=== PATIENT | male | born 1955 | race Caucasian/White ===

== ENCOUNTER 2019-11-10 11:19 | Observation (INO) | payer MEDICARE, OTHER ==
[2019-11-10] MEDS ORDERED: levETIRAcetam IV 1,000 MG in SALINE 1 100ML.BAG IVPB STA (11:27)
[2019-11-10 11:45] VITALS: RESP 18
[2019-11-10] MEDS: SODIUM CHLORIDE 0.9% 1,000 ML IV STA ×2 (11:48→15:05)
[2019-11-10 11:51] LABS: Basophils % (A) 0 %; Eosinophils # (A) 0.1 k/uL (0-0.7); Eosinophils % (A) 2 %; HCT 47.5 % (39.0-53.0); HGB 15.7 gm/dL (13.0-17.5); Lymphocytes # (A) 1.8 k/uL (1.0-4.8); Lymphocytes % (A) 25 %; MCHC 32.9 g/dL (31.0-37.0); MCV 97.1 fL (80.0-100.0); Mean Platelet Volume 8.6; Monocytes # (A) 0.3 k/uL (0-1.0); Monocytes % (A) 5 %; Neutrophils # (A) 4.7 k/uL (1.3-7.7); Neutrophils % (A) 66 %; Platelet Count 232 k/uL (150-450); RBC 4.89 m/uL (4.30-5.90); RDW 12.7 % (11.5-15.5); WBC 7.2 k/uL (3.8-10.6)
--- NOTE | 2019-11-10 11:57 | ED ---
General Adult HPI - General Chief complaint: Neuro Symptoms/Deficit Stated complaint: Unresponsive Time Seen by Provider: 11/10/19 11:20 Source: patient, EMS, RN notes reviewed Mode of arrival: EMS Limitations: altered mental status - History of Present Illness Initial comments: Patient is a pleasant 64-year-old male presenting to the emergency department following an unresponsive episode. EMS reports that family saw patient with clenching of the jaw and abnormal breathing pattern and tonic muscle activity. Patient was with decreased responsiveness. Sudden onset. No injury. Patient was unresponsive for around 6 minutes. Family did do bystander CPR. They did not check a pulse prior to this. When EMS arrived patient did have a pulse and was breathing on his own. Patient was unresponsive and then became combative and then became confused. Patient has slowly improved since that time. Patient arrives and is alert and acting appropriately. Patient does not recall the episode. Patient states he has a history of seizure once many years ago. Patient does not take seizure medication. Patient denies head injury or any recent illness. Patient has no physical complaints at this time however states he does feel slightly confused. Patient agrees that he did bite his tongue during examination. Patient also was incontinent of urine and stool. Patient denies any alcohol or drug use. Chest pain or dyspnea. - Related Data Home Medications Medication Instructions Recorded Confirmed Ibuprofen [Motrin Ib] 400 mg PO Q6HR PRN 11/10/19 11/10/19 Allergies Allergy/AdvReac Type Severity Reaction Status Date / Time Penicillins Allergy Unknown Verified 11/10/19 12:22 shellfish derived [Shellfish] Allergy Unknown Verified 11/10/19 12:22 Review of Systems ROS Statement: Those systems with pertinent positive or pertinent negative responses have been documented in the HPI. ROS Other: All systems not noted in ROS Statement are negative. Constitutional: Denies: fever Eyes: Denies: eye pain ENT: Denies: ear pain Respiratory: Denies: cough, dyspnea Cardiovascular: Denies: chest pain Endocrine: Denies: fatigue Gastrointestinal: Denies: abdominal pain Genitourinary: Denies: dysuria Musculoskeletal: Denies: back pain Skin: Denies: rash Neurological: Reports: as per HPI, confusion. Denies: headache, weakness Past Medical History Past Medical History: No Reported History History of Any Multi-Drug Resistant Organisms: None Reported Past Surgical History: No Surgical Hx Reported Past Psychological History: No Psychological Hx Reported Smoking Status: Never smoker Past Alcohol Use History: None Reported Past Drug Use History: None Reported General Exam Limitations: altered mental status General appearance: alert, in no apparent distress Head exam: Present: atraumatic, normocephalic Eye exam: Present: normal appearance, PERRL, EOMI ENT exam: Present: other (Tongue and upper lip abrasion) Neck exam: Present: normal inspection. Absent: tenderness Respiratory exam: Present: normal lung sounds bilaterally Cardiovascular Exam: Present: regular rate, normal rhythm GI/Abdominal exam: Present: soft. Absent: tenderness Extremities exam: Present: normal inspection, full ROM. Absent: tenderness Neurological exam: Present: alert, CN II-XII intact. Absent: motor sensory deficit Expanded Neurological exam: Present: protecting the airway Patient oriented to: Present: person, place. Absent: time Speech: Present: fluid speech Cranial nerves: EOM's Intact: Normal Motor strength exam: RUE: 5, LUE: 5, RLE: 5, LLE: 5 Eye Response: (4) open spontaneously Motor Response: (6) obeys commands Verbal Response: (4) confused conversation Psychiatric exam: Present: normal affect, normal mood Skin exam: Present: normal color Course Vital Signs 11/10/19 11/10/19 11:37 12:46 Temperature 98.2 F Pulse Rate 77 74 Respiratory 18 18 Rate Blood Pressure 139/81 123/85 O2 Sat by Pulse 99 95 Oximetry EKG Findings - EKG Comments: EKG Findings:: Normal sinus rhythm 78. [place] 134. QRS 92. QT 406. QTc 462. Normal QRS. No acute ST change. Medical Decision Making - Medical Decision Making Patient reevaluated. Patient resting comfortably in bed. Patient updated on results and plan. Case was Detail with Britton Durand Who Will Admit Covered for Hospital Call. - Lab Data Result diagrams: 11/10/19 11:36 11/10/19 11:36 Lab Results 11/10/19 11/10/19 Range/Units 11:36 11:36 WBC 7.2 (3.8-10.6) k/uL RBC 4.89 (4.30-5.90) m/uL Hgb 15.7 (13.0-17.5) gm/dL Hct 47.5 (39.0-53.0) % MCV 97.1 (80.0-100.0) fL MCH 32.0 (25.0-35.0) pg MCHC 32.9 (31.0-37.0) g/dL RDW 12.7 (11.5-15.5) % Plt Count 232 (150-450) k/uL Neutrophils % 66 % Lymphocytes % 25 % Monocytes % 5 % Eosinophils % 2 % Basophils % 0 % Neutrophils # 4.7 (1.3-7.7) k/uL Lymphocytes # 1.8 (1.0-4.8) k/uL Monocytes # 0.3 (0-1.0) k/uL Eosinophils # 0.1 (0-0.7) k/uL Basophils # 0.0 (0-0.2) k/uL Sodium 136 L (137-145) mmol/L Potassium 4.4 (3.5-5.1) mmol/L Chloride 107 (98-107) mmol/L Carbon Dioxide 22 (22-30) mmol/L Anion Gap 7 mmol/L BUN 13 (9-20) mg/dL Creatinine 0.54 L (0.66-1.25) mg/dL Est GFR (CKD-EPI)AfAm >90 (>60 ml/min/1.73 sqM) Est GFR (CKD-EPI)NonAf >90 (>60 ml/min/1.73 sqM) Glucose 150 H (74-99) mg/dL Calcium 8.6 (8.4-10.2) mg/dL Total Bilirubin 0.7 (0.2-1.3) mg/dL AST 43 (17-59) U/L ALT 25 (4-49) U/L Alkaline Phosphatase 104 (38-126) U/L Total Protein 6.7 (6.3-8.2) g/dL Albumin 3.9 (3.5-5.0) g/dL Serum Alcohol <10 mg/dL - Radiology Data Radiology results: image reviewed (Computed tomography scan of the brain shows no acute hemorrhage or shift. Mild atrophy.) Disposition Clinical Impression: New onset seizure Disposition: ADMITTED IP TO THIS HOSP Is patient prescribed a controlled substance at d/c from ED?: No Referrals: None,Stated [Primary Care Provider] - 1-2 days Decision Time: 12:53
--- NOTE | 2019-11-10 12:17 | CT ---
EXAMINATION TYPE: CT brain wo con DATE OF EXAM: 11/10/2019 HISTORY: Seizure activity CT DLP: 1098.4 mGycm. Automated Exposure Control for Dose Reduction was Utilized. TECHNIQUE: CT scan of the head is performed without contrast. COMPARISON: None. FINDINGS: There is no acute intracranial hemorrhage or midline shift identified. There is diffuse v entricular and sulcal prominence consistent with diffuse age-related cerebral atrophy. Adame-white mat ter differentiation fairly well-maintained. Slightly low-lying cerebellar tonsils but not greater th an 5 mm inferior descent. The calvarium is intact. The globes are intact and the visualized sinuses a re clear. IMPRESSION: No acute intracranial hemorrhage or midline shift. There is mild diffuse age-related ce rebral atrophy noted.
[2019-11-10 12:32] LABS: ALT 25 U/L (4-49); AST 43 U/L (17-59); African American GFR (CKD) >90 (>60 ml/min/1.73 sqM); Albumin 3.9 g/dL (3.5-5.0); Alcohol <10 mg/dL; Alkaline Phosphatase 104 U/L (38-126); Anion Gap 7 mmol/L; Blood Urea Nitrogen 13 mg/dL (9-20); Calcium 8.6 mg/dL (8.4-10.2); Carbon Dioxide 22 mmol/L (22-30); Chloride 107 mmol/L (98-107); Glucose 150 mg/dL (74-99); Non-African American GFR(CKD) >90 (>60 ml/min/1.73 sqM); Sodium 136 mmol/L (137-145); Total Bilirubin 0.7 mg/dL (0.2-1.3); Total Protein 6.7 g/dL (6.3-8.2)
[2019-11-10] MEDS ORDERED: ONDANSETRON 4 MG/2 ML VIAL IVP STA (12:39)
[2019-11-10 12:53] LABS: Potassium 4.4 mmol/L (3.5-5.1)
[2019-11-10] MEDS ORDERED: LORazepam 2 MG/ML INJ IV PRN (13:01)
[2019-11-10] MEDS ORDERED: NALOXONE 0.4 MG/ML 1 ML VIAL IV PRN (13:01)
[2019-11-10 13:29] LABS: Appearance,Urine Clear (Clear); Bilirubin,Urine Negative (Negative); Blood,Urine Negative (Negative); Color,Urine Yellow; Glucose,Urine (UA) Negative (Negative); Ketones,Urine 1+ (Negative); Leukocyte Esterase,Urine Negative (Negative); Nitrite,Urine Negative (Negative); Protein,Urine Trace (Negative); Specific Gravity,Urine 1.013 (1.001-1.035); Urobilinogen,Urine <2.0 mg/dL (<2.0)
[2019-11-10 13:49] LABS: Amphetamine Screen,Urine Not Detected (NotDetected); Barbiturate Screen,Urine Not Detected (NotDetected); Benzodiazepines Screen,Urine Not Detected (NotDetected); Cocaine Screen,Urine Not Detected (NotDetected); Methadone Screen, Urine Not Detected (NotDetected); Opiate Screen,Urine Not Detected (NotDetected); Oxycodone Screen, Urine Not Detected (NotDetected); Phencyclidine Screen,Urine Not Detected (NotDetected); Tricyclic Antidepressant,Urine Not Detected (NotDetected); Urn Cannabinoid Scrn Not Detected (NotDetected)
--- NOTE | 2019-11-10 17:45 | HP ---
HISTORY AND PHYSICAL A 64-year-old white male who came to the emergency room, unresponsive episode from clenching his jaw, abnormal breathing, tonic clonic activity, who already passed out, as well as urinary incontinence and foaming at the mouth, decreased responsiveness, postop confusion. He is unresponsive for about 6 minutes, did some kind of CPR. Currently sitting up in bed. His family member says he is kind of confused still, but as he is eating and drinking now, he is becoming more with it. He denies any history of any seizures. He does not take any medications. No history of trauma. When he did collapse before he started seizing, they apparently had caught him and lowered him to the ground. Does not do alcohol or drugs. He does not take any medicines except over- the-counter medications. ALLERGIES: PENICILLIN, SHELLFISH. 14-POINT REVIEW OF SYSTEMS: Otherwise negative. No medical history. No surgeries. No heart attacks, strokes. PHYSICAL EXAM: Apparently, temp 98.2, blood pressure 120s to 130s/80s, pulse 74, 77, respiratory 18- 20, O2 is 95 to 99. CARDIOVASCULAR: S1, S2. LUNGS: Clear. GI: Soft. HEMATOLOGY: Negative Homans. PSYCH: Fair mood and affect. NEUROLOGIC: Alert and oriented x3. OPHTHALMOLOGIC: Pupils equal, round, reactive to basic commands. Opens eyes spontaneously. His normal mood and affect at this time does not appear confused. EKG is normal sinus rhythm. LABS: Reviewed. Normal white count 7.2, hemoglobin 15.7, sodium 136, potassium 4.4, BUN 13, creatinine 0.54. The CAT scan of the brain is normal. ASSESSMENT: New onset seizure. Get neurology consult, get an EEG. Apparently, unclear what caused this. Will have to rule out low blood sugar as a possible cause. His glucose is 150. Will do a hemoglobin A1c, rehydrate him overnight, do an EEG. Please see further orders. Prognosis guarded. MMODL / IJN: [id number] /
--- NOTE | 2019-11-10 20:33 | P.CNNES ---
History of Present Illness Consult date: 11/10/19 Requesting physician: Oneil Morse Reason for Consult: New onset seizure History of Present Illness: Patient is a 64-year-old male came to the hospital for new onset seizure. Patient states that he has been working a lot, cleaning his dad's house, getting ready for his granddaughter's birthday. He thinks he overworked. He woke up this morning at 6 AM, was cleaning his garage, then without any warning, he woke up in the ambulance. He was later on told that he while picking up stuff, did not look right, and they called 911. As per EMS flowsheet, they were called for witnessed cardiac arrest with CPR in progress. Patient was found laying on the ground in the garage with family on location. Family stated the patient has been working in the garage when he suddenly started to stare off and then collapsed. The patient became unconscious and stiff with irregular respirations. Family started chest compressions however had not checked for a pulse prior to doing so. Family stated that patient regained consciousness as EMS was arriving on the scene. Patient's GCS initially was 12. He would respond to verbal stimuli but was unable to follow commands and was confused and mildly combative. His blood glucose was 140. Patient complained of severe nausea. While some mild confusion remained, patient's mental status improved throughout transport and he became alert and oriented 2 with GCS of 14. Patien t had equal exercise rider strengths negative stroke workup. His blood pressure was 140/95, pulse rate 86, respiration 22, saturation 92%. Blood glucose was 140. Patient underwent CT head showed no acute intracranial hemorrhage or midline shift. Mild diffuse age-related cerebral atrophy. EKG shows normal sinus rhythm. Patient's CBC is normal, sodium 136 potassium 4.4, hepatic panel normal. UA negative. Urine drug screen negative, serum alcohol level negative. Patient states that he had a seizure at age 17. It was felt to be related to high fever. He was not ever placed on seizure medication. Never had seizure thereafter. Patient denies any tobacco use, alcohol or drugs. Patient does complain of significant back pain. Patient denies any family history of epilepsy. No history of closed head injury. Review of Systems Patient complains of significant arthritis of his hands, back, foot weakness. Patient has tongue bite from the seizure. Complains of chronic low back pain. Denies any chest pain shortness of breath wheezing or cough. Denies double vision or loss of vision hearing loss. Denies hoarseness, sore throat or dysphagia. All other review of systems unremarkable. Past Medical History Past Medical History: GERD/Reflux, Hypertension, Osteoarthritis (OA), Pneumonia, Seizure Disorder Additional Past Medical History / Comment(s): Seizure many years ago, arthritis in multiple joints especially bilateral hands, occasional back pain, past migraines. History of Any Multi-Drug Resistant Organisms: None Reported Past Surgical History: No Surgical Hx Reported Additional Past Surgical History / Comment(s): Colonoscopies/benign polypectomy, nasal fracture with surgical repair. Past Anesthesia/Blood Transfusion Reactions: No Reported Reaction Smoking Status: Never smoker - Past Family History Father Family Medical History: Cancer, Dementia Additional Family Medical History / Comment(s): colon cancer and prostate cancer. Father lived to be 86yrs old. Mother Family Medical History: Myocardial Infarction (NC) Additional Family Medical History / Comment(s): Mother of a NC at the age of 66yrs. Medications and Allergies Home Medications Medication Instructions Recorded Confirmed Type Ibuprofen [Motrin Ib] 400 mg PO Q6HR PRN 11/10/19 11/10/19 History Allergies Allergy/AdvReac Type Severity Reaction Status Date / Time Penicillins Allergy Unknown Verified 11/10/19 12:22 shellfish derived [Shellfish] Allergy Unknown Verified 11/10/19 12:22 Physical Examination - Vital Signs Vital Signs: Vital Signs Temp Pulse Pulse Resp BP BP Pulse Ox 11/10/19 15:35 97.8 F 70 18 120/78 94 L 11/10/19 13:59 74 18 120/81 95 11/10/19 12:46 74 18 123/85 95 11/10/19 11:37 98.2 F 77 18 139/81 99 Intake and Output 11/10/19 11/10/19 11/10/19 06:59 14:59 22:59 Other: Weight 90.718 kg 90.718 kg On examination patient is a late middle aged male, in no acute distress. He is alert and awake fully oriented to time place and person. Speech and language functions are normal. Attention and concentration fund of knowledge is adequate. On cranial nerve examination pupils are round and reactive to light. Visual perez are full on confrontation. Extraocular muscle s are intact with no nystagmus. Face is symmetric, tongue protrudes to the midline. Palatal elevation and sensation normal. Hearing and shoulder shrug normal. There is evidence of oral trauma with tongue bite abner on the right side of the tongue. On muscle strength testing there is no pronator drift and the strength is normal in both arms distally and proximally. His strength is normal in the hip flexion, adduction, abduction knee extension. His ankle dorsiflexion is 2+ on the right, 3+ to 4 on the left. Plantarflexion is also 4 on the right, 5 on the left. Sensory touch is equal. Reflexes are 1 in the upper limbs, 1+ at the knees and left ankle. Absent right ankle. Plantars are flat. Sensory to touch is equal. No ataxia for [id number] testing. Bulk of muscles is decreased in the right leg and right foot. Gait deferred. No carotid bruit, S1 and S2 audible. Peripheral pulses present. Chest is clear abdominal soft nontender. Results - Laboratory Findings CBC and BMP: 11/10/19 11:36 11/10/19 11:36 Abnormal Lab Findings: Abnormal Labs 11/10/19 11/10/19 11:36 12:57 Sodium 136 L Creatinine 0.54 L Glucose 150 H Urine Protein Trace H Urine Ketones 1+ H Assessment and Plan Assessment: * New onset seizure. Patient has history of a solitary seizure at age 17, which was felt to be related to fever. At present, no obvious provoking factor identified. * Chronic back pain. Bilateral foot drop, right worse than left. Possible spinal stenosis/lumbar radiculopathy. * Obesity. Plan: * Patient will undergo MRI of the brain with and without contrast to evaluate for structural abnormality. We will also check MRI of the lumbar spine because of presence of bilateral footdrop, possible spinal stenosis. * EEG to rule out any epileptiform activity. * Further management will be based upon above test results.
[2019-11-10] MEDS: levETIRAcetam IV 500 MG in SODIUM CHLORIDE 0.9% 100 ML IVPB SCH (20:47)
[2019-11-11 04:45] LABS: Estimated Average Glucose 116.89; Hemoglobin A1C 5.7 % (4.0-6.0)
[2019-11-11 06:22] VITALS: TEMP 97.8
[2019-11-11] MEDS: levETIRAcetam IV 500 MG in SODIUM CHLORIDE 0.9% 100 ML IVPB SCH (09:00)
[2019-11-11 12:53] VITALS: BP 158/98; PULSE 59
--- NOTE | 2019-11-11 15:01 | EEG ---
ELECTROENCEPHALOGRAM REPORT DATE OF SERVICE: 11/11/2019 PREAMBLE: This is a 64-year-old male with new onset seizure. This study is performed to evaluate for any epileptiform activity. EEG FINDINGS: This is a 21 channel routine EEG recording in a patient utilizing 10-20 international system with referential and bipolar montages. The background consists of well developed, well regulated, moderate voltage activity in 9-10 hertz alpha. Background is posterior dominant and reactive to eye opening and closing. Intermittent bitemporal rhythmic theta was seen, left more than right. Occasional runs of sharply controlled theta was seen in the left temporal region. A single sharp wave was seen in the left temporal region in the later part of the study. Stage 2 sleep was seen with appearance of bilaterally symmetric theta frequency rhythm and some sleep spindles. Photic driving response was not seen. EKG rhythm lead revealed no obvious arrhythmia. IMPRESSION: This is an abnormal EEG due to presence of bitemporal slowing, left more than right, suggestive of focal cortical neural dysfunction. The presence of a few sharply contoured theta in the left temporal region and a single sharp wave also seen in the left temporal region implies underlying cortical irritability and tendency for seizures. Clinical correlation is recommended. MMODL / IJN: [id number] / [facility] HOSPITALJohann
--- NOTE | 2019-11-11 17:34 | MR ---
EXAMINATION TYPE: MR brain/lspine wo con DATE OF EXAM: 11/11/2019 COMPARISON: HISTORY: Bilateral foot drop, possible spinal stenosis Weakness. Multiplanar multiecho imaging of the brain was performed without contrast. FINDINGS: There is mild cerebral atrophy. There is no mass effect nor midline shift. There is no sign of intrac ranial hemorrhage. Diffusion images show no evidence of cortical infarct. The brainstem is intact. Th ere is no evidence of posterior fossa mass. There is minimal mucosal thickening in the ethmoid air ce lls. Corpus callosum is intact. Sella turcica appears normal. Cerebellum is intact. On the FLAIR imag es there is some mild diffuse increased signal in the white matter around the lateral ventricles with out a focal measurable lesion. There is no evidence of orbital mass. IMPRESSION: White matter slight increased signal around the lateral ventricles in the parietal lobes is subtle an d diffuse of uncertain significance. Minimal atrophy. No focal lesion. Minimal ethmoid sinusitis. MR scan of the lumbar spine. Multiplanar multiecho imaging of the lumbar spine was performed without contrast. FINDINGS: The lumbar vertebra have normal alignment. There is minimal disc space narrowing at L5-S1. There is r udimentary disc at S1-S2. There is mild posterior disc bulging at L4-5 and L5-S1. There is mild facet arthropathy and lateral recess stenosis at L5-S1 on the right side. There is similar bilateral minim al lateral recess stenosis at L4-5. There is right side L4-5 neural foraminal narrowing due to disc s pace narrowing and facet arthropathy. There is no significant spinal canal stenosis. There is no lumb ar paraspinal mass. I see no bony destructive process. There is no compression fracture. 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 No significant spinal canal stenosis. No fracture.
--- NOTE | 2019-11-11 19:02 | P.PN ---
Subjective Progress Note Date: 11/11/19 Patient's somnolent at this time. Patient was given Ativan for MRI. Patient's daughter was present. No further seizures. Objective - Vital Signs Vital signs: Vital Signs Temp 97.8 F 11/11/19 12:21 Pulse 59 L 11/11/19 16:00 Resp 18 11/11/19 16:00 BP 158/98 11/11/19 12:21 Pulse Ox 97 11/11/19 12:21 Intake & Output 11/10/19 11/11/19 11/11/19 18:59 06:59 18:59 Intake Total 900 240 Output Total 1300 Balance 900 -1060 Weight 90.718 kg Intake: Intake, IV Titration 900 Amount Sodium Chloride 0.9% 1, 900 000 ml @ 75 mls/hr IV . [id number] STA Rx#:[id number] Oral 240 Output: Urine 1300 Other: Voiding Method Toilet Toilet Urinal Urinal # Voids 1 1 3 - Exam Patient sedated from Ativan. - Labs CBC & Chem 7: 11/10/19 11:36 11/10/19 11:36 Assessment and Plan Assessment: * New onset seizure. Patient has history of a solitary seizure at age 17, which was felt to be related to fever. At present, no obvious provoking factor identified. * Chronic back pain. Bilateral foot drop, right worse than left. No evidence of spinal stenosis/lumbar radiculopathy. Patient probably has peripheral neuropathy. * Obesity. Plan: * MRI of the brain with and without contrast revealed no acute process. White matter slight increased signal around the lateral ventricles in the parietal lobes is subtle and diffuse of uncertain significance. Minimal atrophy. No focal lesion. Mild ethmoid sinusitis. * MRI of the lumbar spine showed spondylitic changes in the lower lumbar spine with some neural foraminal narrowing and lateral recess stenosis. No significant spinal canal stenosis. No fracture. * EEG was abnormal due to presence of intermittent bitemporal slowing, left more than right, suggestive of focal cortical neuronal dysfunction. The presence of a few sharply contoured left temporal theta and a single sharp wave also in the left temporal region implies underlying cortical irritability and tendency for seizures. Clinical correlation is recommended. * Patient already has been started on Keppra 500 mg twice a day. He will be continued on Keppra 500 mg twice a day. * patient was recommended to follow up with neurologist regarding management of his seizure disorder, and also perhaps for EMG and nerve conduction studies of bilateral lower extremities, to evaluate for peripheral neuropathy. * Patient's daughter was informed of [place] state law of no driving unless s eizure free for 6 months, climbing ladders, operating dangerous machinery or unsupervised swimming. As patient was asleep, patient's daughter was recommended to relay information to the patient. Also discussed with the nurse about these restrictions. * Neurologically clear for discharge.
[2019-11-11] MEDS ORDERED: levETIRAcetam 500 MG TAB PO SCH (21:00)
== END 2019-11-11 18:28 | disposition home or self-care (01) ==
LOC: EC 11:19 → 5NMEDONC 13:01
PROVIDERS: ADMIT Family Medicine; ATTEND Family Medicine
DX: G40.409 Other generalized epilepsy and epileptic syndromes, not intractable, without status epilepticus (principal); S00.572A Other superficial bite of oral cavity, initial encounter; G31.9 Degenerative disease of nervous system, unspecified; F02.80 Dementia in other diseases classified elsewhere, unspecified severity, without behavioral disturbance, psychotic disturbance, mood disturbance, and anxiety; M19.042 Primary osteoarthritis, left hand; M19.041 Primary osteoarthritis, right hand; M47.9 Spondylosis, unspecified; M21.371 Foot drop, right foot; M21.372 Foot drop, left foot; E66.9 Obesity, unspecified; G89.29 Other chronic pain; M54.5 Low back pain; K21.9 Gastro-esophageal reflux disease without esophagitis; I10 Essential (primary) hypertension; Z68.26 Body mass index [BMI] 26.0-26.9, adult; Z03.818 Encounter for observation for suspected exposure to other biological agents ruled out; Z86.69 Personal history of other diseases of the nervous system and sense organs; Z79.1 Long term (current) use of non-steroidal anti-inflammatories (NSAID); Z88.0 Allergy status to penicillin; Z91.013 Allergy to seafood; Z87.01 Personal history of pneumonia (recurrent); Z86.010 Personal history of colon polyps; Z87.81 Personal history of (healed) traumatic fracture; Z98.890 Other specified postprocedural states; Z80.0 Family history of malignant neoplasm of digestive organs; Z80.42 Family history of malignant neoplasm of prostate; Z81.8 Family history of other mental and behavioral disorders; Z82.49 Family history of ischemic heart disease and other diseases of the circulatory system; X58.XXXA Exposure to other specified factors, initial encounter
CPT/HCPCS: 96376 ×2; 96361 ×2; 96375 ×2; 96365; 99285; 36415; 95819; 93005; 80053; 84443; 85025; 81003; 80306; 80320; 83036; 70450; 70551; 72148; G0378 ×2; U0003; J2060; J2405; J1953 ×3

== ENCOUNTER 2021-02-14 10:49 | Inpatient (IN) | payer MEDICARE, OTHER ==
[2021-02-14] MEDS ORDERED: SODIUM CHLORIDE 0.9% 50 ML IVPB ONE (11:15)
--- NOTE | 2021-02-14 11:27 | XR ---
EXAMINATION TYPE: XR chest 1V portable DATE OF EXAM: 02/14/2021 COMPARISON: NONE HISTORY: Cough and congestion. TECHNIQUE: Single portable frontal view of the chest is obtained. FINDINGS: There is bilateral increased opacities in the mid to lower lungs greatest in the periphery . No pleural effusion or pneumothorax seen. The cardiac silhouette size is within normal limits. T he osseous structures are intact. IMPRESSION: Bilateral increased opacities mid to lower lung greatest in the bases in the periphery co nsistent with covid-19 infection.
[2021-02-14] MEDS ORDERED: IBUPROFEN 400 MG TAB PO STA (11:30)
[2021-02-14] MEDS ORDERED: CASIRIVIMAB (REGN10933) (EUA) 600 MG, IMDEVIMAB (REGN10987) (EUA) 600 MG in SODIUM CHLO... IVPB ONE (11:30)
[2021-02-14] MEDS ORDERED: ACETAMINOPHEN TAB 500 MG TAB PO STA (11:30)
[2021-02-14] MEDS: DEXAMETHASONE SOD PHOSPHATE 10 MG/ML 1 ML VIAL IVP SCH (11:52)
[2021-02-14 11:57] LABS: Basophils % (A) 0 %; Eosinophils % (A) 0 %; HCT 47.5 % (39.0-53.0); HGB 15.8 gm/dL (13.0-17.5); Lymphocytes # (A) 0.6 k/uL (1.0-4.8); Lymphocytes % (A) 8 %; MCH 31.4 pg (25.0-35.0); MCHC 33.3 g/dL (31.0-37.0); MCV 94.4 fL (80.0-100.0); Mean Platelet Volume 9.1; Monocytes # (A) 0.2 k/uL (0-1.0); Monocytes % (A) 3 %; Neutrophils # (A) 6.2 k/uL (1.3-7.7); Neutrophils % (A) 87 %; Platelet Count 217 k/uL (150-450); RBC 5.03 m/uL (4.30-5.90); RDW 12.7 % (11.5-15.5); WBC 7.1 k/uL (3.8-10.6)
[2021-02-14 12:07] LABS: INR 0.9 (<1.2); Partial Thromboplastin Time 24.2 sec (22.0-30.0); Prothrombin Time 9.7 sec (9.0-12.0)
[2021-02-14 12:12] LABS: ALT 30 U/L (4-49); AST 66 U/L (17-59); African American GFR (CKD) >90 (>60 ml/min/1.73 sqM); Albumin 3.2 g/dL (3.5-5.0); Alkaline Phosphatase 62 U/L (38-126); Anion Gap 8 mmol/L; Blood Urea Nitrogen 24 mg/dL (9-20); Calcium 8.8 mg/dL (8.4-10.2); Carbon Dioxide 23 mmol/L (22-30); Chloride 105 mmol/L (98-107); Glucose 156 mg/dL (74-99); Non-African American GFR(CKD) >90 (>60 ml/min/1.73 sqM); Sodium 136 mmol/L (137-145); Total Bilirubin 0.5 mg/dL (0.2-1.3); Total Protein 6.1 g/dL (6.3-8.2)
--- NOTE | 2021-02-14 12:34 | ED ---
URI HPI - General Chief Complaint: Upper Respiratory Infection Stated Complaint: Covid+/sob/cough Time Seen by Provider: 02/14/21 10:56 Source: patient, RN notes reviewed Mode of arrival: ambulatory Limitations: no limitations - History of Present Illness Initial Comments: Patient is a 65-year-old male with history of hypertension, seizure disorder, presenting to emergency Department with complaints of some shortness of breath. Patient tested positive for Covid today urgent care and they sent him in for further violation acid oxygen levels at 90%. He does complain of some mild shortness of breath. He states his symptoms started just a couple days ago with a cough, fatigue. He denies having a fever prior to today. Denies any nausea or vomiting, no abdominal pain, no chest pain at this time. Patient denies history of asthma or COPD, he is a former smoker. Patient has no further complaints. Patient's vital signs upon arrival was temperature 99.0, 93% on room air. Patient's vitals were rechecked shortly later and he was at 88% on room air. - Related Data Home Medications Medication Instructions Recorded Confirmed No Known Home Medications 02/14/21 02/14/21 Allergies Allergy/AdvReac Type Severity Reaction Status Date / Time Penicillins Allergy Unknown Verified 02/14/21 12:52 shellfish derived [Shellfish] Allergy Unknown Verified 02/14/21 12:52 Review of Systems ROS Statement: Those systems with pertinent positive or pertinent negative responses have been documented in the HPI. ROS Other: All systems not noted in ROS Statement are negative. Past Medical History Past Medical History: GERD/Reflux, Hypertension, Osteoarthritis (OA), Pneumonia, Seizure Disorder Additional Past Medical History / Comment(s): Seizure many years ago, arthritis in multiple joints especially bilateral hands, occasional back pain, past mi graines. History of Any Multi-Drug Resistant Organisms: None Reported Past Surgical History: No Surgical Hx Reported Additional Past Surgical History / Comment(s): Colonoscopies/benign polypectomy, nasal fracture with surgical repair. Past Anesthesia/Blood Transfusion Reactions: No Reported Reaction Past Psychological History: No Psychological Hx Reported Smoking Status: Never smoker Past Alcohol Use History: None Reported Past Drug Use History: None Reported - Past Family History Father Family Medical History: Cancer, Dementia Additional Family Medical History / Comment(s): colon cancer and prostate cancer. Father lived to be 86yrs old. Mother Family Medical History: Myocardial Infarction (VT) Additional Family Medical History / Comment(s): Mother of a VT at the age of 66yrs. General Exam - General Exam Comments Initial Comments: GENERAL: Patient is well-developed and well-nourished. Patient is nontoxic and in no acute distress. HEAD: Atraumatic, normocephalic. EYES: Pupils equal round and reactive to light, extraocular movements intact, sclera anicteric, conjunctiva are normal. Eyelids were unremarkable. ENT: Nares patent, oropharynx clear without exudates. Moist mucous membranes. NECK: Normal range of motion, supple without lymphadenopathy or JVD. LUNGS: Unlabored respirations. Breath sounds clear to auscultation bilaterally and equal. No wheezes rales or rhonchi. HEART: Regular rate and rhythm without murmurs, rubs or gallops. ABDOMEN: Soft, nontender, normoactive bowel sounds. No guarding, no rebound. No masses appreciated. MUSCULOSKELETAL: Normal extremities with adequate strength and normal range of motion, no pitting or edema. No clubbing or cyanosis. NEUROLOGICAL: Patient is alert and oriented x 3. SKIN: Warm, Dry, normal turgor, no rashes or lesions noted. Limitations: no limitations Course Vital Signs 02/14/21 02/14/21 02/14/21 10:51 11:19 11:42 Temperature 99.0 F 100.1 F H Pulse Rate 99 Respiratory 18 20 Rate Blood Pressure 121/82 O2 Sat by Pulse 93 L 88 L Oximetry 02/14/21 12:51 Temperature 98.1 F Pulse Rate 77 Respiratory 18 Rate Blood Pressure O2 Sat by Pulse 90 L Oximetry Medical Decision Making - Medical Decision Making Patient is a 65-year-old male presenting with shortness of breath over the past couple days. He was diagnosed with Covid today at urgent care. He initially read at 93% on room air but vitals rechecked shortly later and he was 84% of room air. He is currently on 4 L of oxygen at 90%. His x-ray shows bilateral increased opacities to the mid and lower lung consistent with Covid infection. Labs are within normal limits. Patient will be admitted for Covid pneumonia, hypoxia. Patient sent in by Dr. Rodriguez, with consult for pulmonology. Case d iscussed with Dr. Palma. - Lab Data Result diagrams: 02/14/21 11:37 02/14/21 11:37 Lab Results 02/14/21 02/14/21 02/14/21 Range/Units 11:37 11:37 11:37 WBC 7.1 (3.8-10.6) k/uL RBC 5.03 (4.30-5.90) m/uL Hgb 15.8 (13.0-17.5) gm/dL Hct 47.5 (39.0-53.0) % MCV 94.4 (80.0-100.0) fL MCH 31.4 (25.0-35.0) pg MCHC 33.3 (31.0-37.0) g/dL RDW 12.7 (11.5-15.5) % Plt Count 217 (150-450) k/uL MPV 9.1 Neutrophils % 87 % Lymphocytes % 8 % Monocytes % 3 % Eosinophils % 0 % Basophils % 0 % Neutrophils # 6.2 (1.3-7.7) k/uL Lymphocytes # 0.6 L (1.0-4.8) k/uL Monocytes # 0.2 (0-1.0) k/uL Eosinophils # 0.0 (0-0.7) k/uL Basophils # 0.0 (0-0.2) k/uL PT 9.7 (9.0-12.0) sec INR 0.9 (<1.2) APTT 24.2 (22.0-30.0) sec Sodium 136 L (137-145) mmol/L Potassium 4.0 (3.5-5.1) mmol/L Chloride 105 (98-107) mmol/L Carbon Dioxide 23 (22-30) mmol/L Anion Gap 8 mmol/L BUN 24 H (9-20) mg/dL Creatinine 0.58 L (0.66-1.25) mg/dL Est GFR (CKD-EPI)AfAm >90 (>60 ml/min/1.73 sqM) Est GFR (CKD-EPI)NonAf >90 (>60 ml/min/1.73 sqM) Glucose 156 H (74-99) mg/dL Calcium 8.8 (8.4-10.2) mg/dL Total Bilirubin 0.5 (0.2-1.3) mg/dL AST 66 H (17-59) U/L ALT 30 (4-49) U/L Alkaline Phosphatase 62 (38-126) U/L Total Protein 6.1 L (6.3-8.2) g/dL Albumin 3.2 L (3.5-5.0) g/dL Disposition Clinical Impression: Pneumonia due to COVID-19 virus, Hypoxia Disposition: ADMITTED IP TO THIS HOSP Condition: Stable Referrals: None,Stated [Primary Care Provider] - 1-2 days Decision Date: 02/14/21 Decision Time: 13:09
[2021-02-14] MEDS ORDERED: ACETAMINOPHEN TAB 325 MG TAB PO PRN (13:07)
[2021-02-14] MEDS ORDERED: ONDANSETRON 4 MG/2 ML VIAL IVP PRN (13:07)
[2021-02-14] MEDS ORDERED: NALOXONE 0.4 MG/ML 1 ML VIAL IV PRN (13:07)
[2021-02-14 13:12] LABS: C Reactive Protein 5.8 mg/dL (<1.0)
--- NOTE | 2021-02-14 15:31 | P.CNPUL ---
History of Present Illness Consult date: 02/14/21 Reason for consult: dyspnea, cough, hypoxemia, abnormal CXR/CT Chief complaint: Fever, cough, fatigue History of present illness: This is a very pleasant 65-year-old male patient with history of hypertension, osteoarthritis, previous episode pneumonia, never smoker, seizure disorder, patient is not on any prescription medications on a regular basis who presented to the emergency department on 02/14/2021 today history of fatigue, cough, fever, and worsening dyspnea, patient tested positive for COVID-19 at the urgent care clinic and he was found to be hypoxic with the pulse ox of 80-90% and was sent to the emergency department for further evaluation and treatment. No nausea or vomiting, no abdominal pain, no chest pain. No history of chronic lung disease. he is a former smoker. His pulse ox was 88% on room air in the emergency department, he did have a fever with temp of 100.1F, he is currently on 4 L of oxygen the pulse ox of 90-94%. He is short of breath with exertion. Does have a dry cough. Chest x-ray showing bilateral increased opacities in the mid to lower lung greatest at the bases in the periphery consistent with COVID- 19 infection. CBC was positive for lymphopenia with lymphocyte, 0.6, Coag profile was within normal limits, sodium was 136, the residential lites were unremarkable, BUN is 24 creatinine 0.58. His AST was 66, ALT was 30, alkaline phosphatase was 62, CRP was 5.8, his LDH level is pending right now, d-dimer has been ordered and pending. He was started on Decadron, prophylactic Lovenox, and we were asked to see the patient in regards to his COVID-19 pneumonia Review of Systems All systems: negative Constitutional: Reports fatigue, Reports weakness, Denies chills, Denies fever Eyes: denies blurred vision, denies pain Ears, nose, mouth and throat: Denies headache, Denies sore throat Cardiovascular: Denies chest pain, Denies shortness of breath Respiratory: Reports cough, Reports dyspnea Gastrointestinal: Denies abdominal pain, Denies diarrhea, Denies nausea, Denies vomiting Musculoskeletal: Denies myalgias Integumentary: Denies pruritus, Denies rash Neurological: Denies numbness, Denies weakness Psychiatric: Denies anxiety, Denies depression Endocrine: Denies fatigue, Denies weight change Past Medical History Past Medical History: GERD/Reflux, Hypertension, Osteoarthritis (OA), Pneumonia, Seizure Disorder Additional Past Medical History / Comment(s): Seizure many years ago, arthritis in multiple joints especially bilateral hands, occasional back pain, past migraines. History of Any Multi-Drug Resistant Organisms: None Reported Past Surgical History: No Surgical Hx Reported Additional Past Surgical History / Comment(s): Colonoscopies/benign polypectomy, nasal fracture with surgical repair. Past Anesthesia/Blood Transfusion Reactions: No Reported Reaction Past Psychological History: No Psychological Hx Reported Smoking Status: Never smoker Past Alcohol Use History: None Reported Past Drug Use History: None Reported - Past Family History Father Family Medical History: Cancer, Dementia Additional Family Medical History / Comment(s): colon cancer and prostate cancer. Father lived to be 86yrs old. Mother Family Medical History: Myocardial Infarction (NE) Additional Family Medical History / Comment(s): Mother of a NE at the age of 66yrs. Medications and Allergies Home Medications Medication Instructions Recorded Confirmed Type No Known Home Medications 02/14/21 02/14/21 History Allergies Allergy/AdvReac Type Severity Reaction Status Date / Time Penicillins Allergy Unknown Verified 02/14/21 12:52 shellfish derived [Shellfish] Allergy Unknown Verified 02/14/21 12:52 Physical Exam Vitals: Vital Signs Temp Pulse Resp BP Pulse Ox 02/14/21 14:36 81 94 L 02/14/21 12:51 98.1 F 77 18 90 L 02/14/21 11:42 20 02/14/21 11:19 100.1 F H 88 L 02/14/21 10:51 99.0 F 99 18 121/82 93 L Intake and Output 02/14/21 02/14/21 02/14/21 06:59 14:59 22:59 Other: Weight 102.058 kg GENERAL EXAM: Alert, very pleasant, 65-year-old white male, on 4 L of oxygen pulse ox is 90-94% comfortable in no apparent distress. HEAD: Normocephalic/atraumatic. EYES: Normal reaction of pupils, equal size. Conjunctiva pink, sclera white. NOSE: Clear with pink turbinates. THROAT: No erythema or exudates. NECK: No masses, no JVD, no thyroid enlargement, no adenopathy. CHEST: No chest wall deformity. Symmetrical expansion. LUNGS: Equal air entry with crackles at bilateral bases CVS: Regular rate and rhythm, normal S1 and S2, no gallops, no murmurs, no rubs ABDOMEN: Soft, nontender. No hepatosplenomegaly, normal bowel sounds, no guarding or rigidity. EXTREMITIES: No clubbing, no edema, no cyanosis, 2+ pulses and upper and lower extremities. MUSCULOSKELETAL: Muscle strength and tone normal. SPINE: No scoliosis or deformity SKIN: No rashes CENTRAL NERVOUS SYSTEM: Alert and oriented -3. No focal deficits, tone is normal in all 4 extremities. PSYCHIATRIC: Alert and oriented -3. Appropriate affect. Intact judgment and insight. Results - Laboratory Findings CBC and BMP: 02/14/21 11:37 02/14/21 11:37 PT/INR, D-dimer PT 9.7 sec (9.0-12.0) 02/14/21 11:37 INR 0.9 (<1.2) 02/14/21 11:37 Abnormal lab findings: Abnormal Labs 02/14/21 02/14/21 11:37 11:37 Lymphocytes # 0.6 L Sodium 136 L BUN 24 H Creatinine 0.58 L Glucose 156 H AST 66 H C-Reactive Protein 5.8 H Total Protein 6.1 L Albumin 3.2 L - Diagnostic Findings Chest x-ray: report reviewed, image reviewed Assessment and Plan Plan: Assessment: #1. Acute hypoxic respiratory failure related to COVID-19 pneumonia, onset of symptoms was 2 days prior to presentation. Patient is a non-vaccinated individual. He is on 4 L of supplemental oxygen, he is a good candidate for Re mdesivir and we will start it today on 02/14/2021 #2. Dyspnea, fever, cough related to the above #3. Hypertension #4. Osteoarthritis #5. Previous episode of pneumonia #6. Seizure disorder, has not had episode of seizure in many years not on any maintenance medications #7. Former smoker #8. Migraine headaches Plan: We'll start the patient on Remdesivir We'll start colchicine, continue Lovenox Vitamin C, zinc and vitamin D We will obtain a d-dimer and follow inflammatory markers We'll continue supportive treatment, monitor for any worsening dyspnea or hypoxia We'll continue to follow I performed a history & physical examination of the patient and discussed their management with my nurse practitioner, Nery Newman. I reviewed the nurse practitioner's note and agree with the documented findings and plan of care. Lung sounds are positive for bibasilar crackles throughout the lung perez. The findings and the impression was discussed with the patient. I attest to the d ocumentation by the nurse practitioner. Time with Patient: Greater than 30
[2021-02-14] MEDS ORDERED: REMDESIVIR 200 MG in SODIUM CHLORIDE 0.9% 250 ML IVPB ONE (16:00)
[2021-02-14] MEDS: ASCORBIC ACID 500 MG TAB PO SCH (18:39)
[2021-02-14] MEDS: CHOLECALCIFEROL 10 MCG (400 IU) TABLET PO SCH (18:39)
[2021-02-14] MEDS: ENOXAPARIN 40 MG/0.4 ML SYRINGE SQ SCH (18:39)
[2021-02-14] MEDS: ZINC SULFATE 220 MG CAP PO SCH (18:39)
[2021-02-14] MEDS: COLCHICINE 0.6 MG EACH PO SCH (22:42)
[2021-02-15] MEDS: ENOXAPARIN 40 MG/0.4 ML SYRINGE SQ SCH (07:37)
[2021-02-15] MEDS: ASCORBIC ACID 500 MG TAB PO SCH (07:37)
[2021-02-15] MEDS: ZINC SULFATE 220 MG CAP PO SCH (07:37)
[2021-02-15] MEDS: COLCHICINE 0.6 MG EACH PO SCH ×2 (07:37→20:32)
[2021-02-15] MEDS: CHOLECALCIFEROL 10 MCG (400 IU) TABLET PO SCH (07:38)
[2021-02-15] MEDS: IBUPROFEN 400 MG TAB PO PRN (07:38)
[2021-02-15] MEDS: DEXAMETHASONE SOD PHOSPHATE 10 MG/ML 1 ML VIAL IVP SCH (07:38)
--- NOTE | 2021-02-15 12:22 | P.HPIM ---
<Octavio Rowe - Last Filed: 02/15/21 12:06> History of Present Illness H&P Date: 02/15/21 History of Presenting Illness: Patient is a very pleasant 65-year-old male with a past medical history of former nicotine use, hypertension, and seizure disorder. He presented to the emergency department on 02/14/21 with a chief complaint of shortness of breath. Patient reportedly began experiencing cough, fatigue, and shortness of breath a few days ago and went to the urgent care where he reportedly tested positive for Covid 19 virus and was found to be hypoxic with SpO2 of 90% and sent to the ER for further evaluation. Upon arrival to the emergency department patient was found to be hypoxic at 88% on room air and have a low-grade temp of 100.1F. Patient currently requiring oxygen supplementation 5 L O2 with SpO2 of 91%. A chest x-ray was completed revealing bilateral increased opacities mid to lower lung. Patient was started on Remdesivir, zinc, vitamin C, vitamin D, Lovenox, and Decadron. Labs completed revealing slightly elevated d-dimer of 0.61 and CRP 5.8. Patient admitted under our services with consultation to pulmonology. Patient seen and fully evaluated at the bedside this morning he reports shortness of breath with rest significantly increasing with minimal exertion. He states this is accompanied by a dry cough and body aches. Patient denies having any headache, lightheadedness, dizziness, chest pain, palpitations, abdominal pain, nausea, vomiting, or experiencing any numbness/tingling/weakness/swelling in his extremities. Patient reports he c ontinues to have a good appetite and denies having loss of taste or smell. Patient is unvaccinated for Covid 19 virus. Review of systems: Pertinent positives and negatives as discussed in HPI, a complete review of systems was performed and all other systems are negative. Physical exam: Vital signs reviewed and stable. General: Nontoxic, no distress and appears stated age. Derm: Skin warm and dry, normal coloration for ethnicity. Head: Atraumatic, normocephalic and symmetric. Eyes: EOMs intact, no lid lag, and anicteric sclera Mouth: no lip lesions, mucus membranes moist Cardiovascular: regular rate and rhythm with normal S1S2, no murmur, positive posterior tibial pulses bilaterally, and cap refill < 2 seconds. Lungs: Respirations even, regular, and unlabored at rest on 5L O2 via NC. Noted conversational dyspnea. Lungs diminished with bibasilar crackles. No wheezing or rhonchi. Abdominal: soft, nontender to palpation, no guarding, no appreciable or ganomegaly Ext: ROM intact. No gross muscle atrophy, no edema, no contractures Neuro: Speech clear, face symmetrical and CN II-XII grossly intact with no noted focal neuro deficits Psych: Alert and oriented to person, place, time, and situation. Appropriate and pleasant affect. Assessment and Plan of Care: Acute Respiratory Failure with Hypoxia secondary to Covid 19 pneumonia. -Oxygenation to be administered and titrated as needed to maintain SPO2 equal to or greater than 90% -Telemetry monitoring. -Remdesivir day 05/24 -Zinc, vitamin C and Vitamin D -Steroids: Decadron dose 05/30 -Pulmonary following, appreciate further recommendations. -Follow inflammatory markers with repeat a.m labs. Hypertension Monitor vital signs. Patient is currently not on any antihypertensive medication and currently blood pressure is stable. Seizure disorder Patient reports being seizure-free for many years and no longer taking antiepileptic medications. We will place patient on seizure precautions and monitor. The patient is admitted with an anticipated greater than 2 midnight stay for evaluation of Acute hypoxic respiratory failure due to covid pneumonia CODE STATUS: Full code DVT prophylaxis: Lovenox Discussed with: Patient and RN Anticipated discharge date: clinical course to determine Anticipated discharge place: Home A total of 45 minutes was spent on the care of this complex patient more than 50% of the time was spent in counseling and care coordination. Past Medical History Past Medical History: GERD/Reflux, Hypertension, Osteoarthritis (OA), Pneumonia, Seizure Disorder Additional Past Medical History / Comment(s): Seizure many years ago, arthritis in multiple joints especially bilateral hands, occasional back pain, past migraines. History of Any Multi-Drug Resistant Organisms: None Reported Past Surgical History: No Surgical Hx Reported Additional Past Surgical History / Comment(s): Colonoscopies/benign polypectomy, nasal fracture with surgical repair. Past Anesthesia/Blood Transfusion Reactions: No Reported Reaction Past Psychological History: No Psychological Hx Reported Smoking Status: Never smoker Past Alcohol Use History: None Reported Past Drug Use History: None Reported - Past Family History Father Family Medical History: Cancer, Dementia Additional Family Medical History / Comment(s): colon cancer and prostate cancer. Father lived to be 86yrs old. Mother Family Medical History: Myocardial Infarction (NE) Additional Family Medical History / Comment(s): Mother of a NE at the age of 66yrs. Medications and Allergies Home Medications Medication Instructions Recorded Confirmed Type No Known Home Medications 02/14/21 02/14/21 History Allergies Allergy/AdvReac Type Severity Reaction Status Date / Time Penicillins Allergy Unknown Verified 02/14/21 12:52 shellfish derived [Shellfish] Allergy Unknown Verified 02/14/21 12:52 Physical Exam Vitals: Vital Signs Temp Pulse Pulse Resp BP BP Pulse Ox 02/15/21 06:03 97.7 F 72 147/97 88 L 02/15/21 01:58 97.9 F 67 118/77 91 L 02/14/21 22:42 89 L 02/14/21 22:40 97.4 F L 72 134/93 85 L 02/14/21 18:48 98 F 80 18 121/83 98 02/14/21 18:41 97.8 F 75 18 116/85 90 L 02/14/21 16:33 98.6 F 76 16 115/84 93 L 02/14/21 14:36 81 94 L 02/14/21 12:51 98.1 F 77 18 90 L 02/14/21 11:42 20 02/14/21 11:19 100.1 F H 88 L 02/14/21 10:51 99.0 F 99 18 121/82 93 L Intake and Output 02/14/21 02/15/21 02/15/21 22:59 06:59 14:59 Other: # Voids 1 # Bowel Movements 0 Results CBC & Chem 7: 02/14/21 11:37 02/14/21 11:37 Labs: Abnormal Lab Results - Last 24 Hours (Table) 02/14/21 02/14/21 02/14/21 Range/Units 11:37 11:37 15:51 Lymphocytes # 0.6 L (1.0-4.8) k/uL D-Dimer 0.61 H (<0.60) mg/L FEU Sodium 136 L (137-145) mmol/L BUN 24 H (9-20) mg/dL Creatinine 0.58 L (0.66-1.25) mg/dL Glucose 156 H (74-99) mg/dL AST 66 H (17-59) U/L C-Reactive Protein 5.8 H (<1.0) mg/dL Total Protein 6.1 L (6.3-8.2) g/dL Albumin 3.2 L (3.5-5.0) g/dL Thrombosis Risk Factor Assmnt - Choose All That Apply Each Risk Factor Represents 2 Points: Age 61-74 years Other congenital or acquired thrombophilia - If yes, enter type in comment: No Thrombosis Risk Factor Assessment Total Risk Factor Score: 2 Thrombosis Risk Factor Assessment Level: Low Risk <Edelmira Gonzalez - Last Filed: 02/15/21 20:41> History of Present Illness Patient seen and examined independently. Patient was also seen by Octavio Rowe NP and case was discussed. I am in agreement with subjective, physical exam, assessment and plan as written above and amended below. Patient is feeling better than on admission, breathing is easier. Feels much better with O2 on. He is aware of how he got COVID- from a 16 year old. His daughter and granddaughter has not tested positive as well. I have informed him on the possibility of monoclonal antibody for high risk contacts and need for quarantine. General: non toxic, no distress, appears at stated age Derm: warm, dry Head: atraumatic, normocephalic, symmetric Eyes: EOMI, no lid lag, anicteric sclera, sunken eyes Mouth: no lip lesion, mucus membranes dry Cardiovascular: S1S2 reg, no murmur, positive posterior tibial pulse bilateral, Lungs: [Coarse breath sounds bilateral, no rhonchi, no rales , no accessory muscle use Abdominal: soft, nontender to palpation, no guarding, no appreciable org anomegaly Ext: no gross muscle atrophy, no edema, no contractures Neuro: CN II-XI grossly intact, no focal neuro deficits Psych: Alert, oriented, appropriate affect Physical Exam Osteopathic Statement: *. No significant issues noted on an osteopathic structural exam other than those noted in the History and Physical/Consult. Vitals: Vital Signs Temp Pulse Resp BP Pulse Ox 02/15/21 17:17 97.5 F L 77 18 125/83 92 L 02/15/21 16:47 92 L 02/15/21 14:09 97.7 F 78 18 128/84 89 L 02/15/21 09:42 97.5 F L 74 18 114/78 91 L 02/15/21 06:03 97.7 F 72 147/97 88 L 02/15/21 01:58 97.9 F 67 118/77 91 L 02/14/21 22:42 89 L 02/14/21 22:40 97.4 F L 72 134/93 85 L Intake and Output 02/15/21 02/15/21 02/15/21 06:59 14:59 22:59 Intake Total 250 Balance 250 Intake: Intake, IV Titration 250 Amount Remdesivir 100 mg In 250 Sodium Chloride 0.9% 250 ml @ 250 mls/hr IVPB DAILY@1600 COUNT INCLUDES THE [facility] Rx#: [id number] Other: # Voids 1 # Bowel Movements 0 Results CBC & Chem 7: 02/14/21 11:37 02/14/21 11:37
--- NOTE | 2021-02-15 12:31 | P.PN ---
Subjective Progress Note Date: 02/15/21 Principal diagnosis: COVID-19 pneumonia This is a very pleasant 65-year-old male patient with history of hypertension, osteoarthritis, previous episode pneumonia, never smoker, seizure disorder, patient is not on any prescription medications on a regular basis who presented to the emergency department on 02/14/2021 today history of fatigue, cough, fever, and worsening dyspnea, patient tested positive for COVID-19 at the urgent care clinic and he was found to be hypoxic with the pulse ox of 80-90% and was sent to the emergency department for further evaluation and treatment. No nausea or vomiting, no abdominal pain, no chest pain. No history of chronic lung disease. he is a former smoker. His pulse ox was 88% on room air in the emergency department, he did have a fever with temp of 100.1F, he is currently on 4 L of oxygen the pulse ox of 90-94%. He is short of breath with exertion. Does have a dry cough. Chest x-ray showing bilateral increased opacities in the mid to lower lung greatest at the bases in the periphery consistent with COVID- 19 infection. CBC was positive for lymphopenia with lymphocyte, 0.6, Coag profile was within normal limits, sodium was 136, the residential lites were unremarkable, BUN is 24 creatinine 0.58. His AST was 66, ALT was 30, alkaline phosphatase was 62, CRP was 5.8, his LDH level is pending right now, d-dimer has been ordered and pending. He was started on Decadron, prophylactic Lovenox, and we were asked to see the patient in regards to his COVID-19 pneumonia The patient is seen today 02/15/2021 in follow-up on the regular medical floor. He is currently awake and alert in no acute distress. Sitting up in a chair at the bedside. He is up to 5 L high flow nasal cannula to maintain O2 saturation in the low 90s. This is day #2 of Remdesivir. He remains on colcrys, Decadron, Lovenox, vitamin supplements. Objective - Vital Signs Vital signs: Vital Signs Temp 97.5 F L 02/15/21 09:42 Pulse 74 02/15/21 09:42 Resp 18 02/15/21 09:42 BP 114/78 02/15/21 09:42 Pulse Ox 91 L 02/15/21 09:42 Intake & Output 02/14/21 02/15/21 02/15/21 18:59 06:59 18:59 Weight 102.058 kg Other: # Voids 1 # Bowel Movements 0 - Exam GENERAL EXAM: Alert, very pleasant, 65-year-old male patient, on 5 L of oxygen pulse ox is 91% comfortable in no apparent distress. HEAD: Normocephalic/atraumatic. EYES: Normal reaction of pupils, equal size. Conjunctiva pink, sclera white. NOSE: Clear with pink turbinates. THROAT: No erythema or exudates. NECK: No masses, no JVD, no thyroid enlargement, no adenopathy. CHEST: No chest wall deformity. Symmetrical expansion. LUNGS: Equal air entry with crackles at bilateral bases CVS: Regular rate and rhythm, normal S1 and S2, no gallops, no murmurs, no rubs ABDOMEN: Soft, nontender. No hepatosplenomegaly, normal bowel sounds, no guardi ng or rigidity. EXTREMITIES: No clubbing, no edema, no cyanosis, 2+ pulses and upper and lower extremities. MUSCULOSKELETAL: Muscle strength and tone normal. SPINE: No scoliosis or deformity SKIN: No rashes CENTRAL NERVOUS SYSTEM: No focal deficits, tone is normal in all 4 extremities. PSYCHIATRIC: Alert and oriented -3. Appropriate affect. Intact judgment and insight. - Labs CBC & Chem 7: 02/14/21 11:37 02/14/21 11:37 Labs: Abnormal Lab Results - Last 24 Hours (Table) 02/14/21 02/14/21 Range/Units 11:37 15:51 D-Dimer 0.61 H (<0.60) mg/L FEU Sodium 136 L (137-145) mmol/L BUN 24 H (9-20) mg/dL Creatinine 0.58 L (0.66-1.25) mg/dL Glucose 156 H (74-99) mg/dL AST 66 H (17-59) U/L C-Reactive Protein 5.8 H (<1.0) mg/dL Total Protein 6.1 L (6.3-8.2) g/dL Albumin 3.2 L (3.5-5.0) g/dL Assessment and Plan Assessment: 1 Acute hypoxic respiratory failure related to COVID-19 pneumonia, onset of symptoms was 2 days prior to presentation. Patient is a non-vaccinated individual. He is on 5 L of supplemental oxygen, Remdesivir started on 02/14/2021 2 Dyspnea, fever, cough related to the above 3 Hypertension 4 Osteoarthritis 5 Previous episode of pneumonia 6 Seizure disorder, has not had episode of seizure in many years not on any maintenance medications 7 Former smoker 8 Migraine headaches Plan: The patient was seen and evaluated by Dr. Barton Continue the current treatment plan The day #2 of Remdesivir Continue Colcrys, Lovenox, Decadron, vitamin supplements Titrate the FiO2 as tolerated Follow-up chest x-ray and inflammatory markers in the a.m. We will continue to follow I, the cosigning physician, performed a history & physical examination of the patient. Lungs sounds with crackles in the bilateral posterior bases. Maintaining good O2 saturations in the 90s on 5 L/m per nasal cannula I discussed the assessment and plan of care with my nurse practitioner, Lorenza Esquivel. I attest to the above note as dictated by her.
[2021-02-15] MEDS: REMDESIVIR 100 MG in SODIUM CHLORIDE 0.9% 250 ML IVPB SCH (16:43)
[2021-02-16] MEDS: IBUPROFEN 400 MG TAB PO PRN (06:15)
--- NOTE | 2021-02-16 08:05 | XR ---
EXAMINATION TYPE: XR chest 1V portable DATE OF EXAM: 02/16/2021 COMPARISON: Chest x-ray 02/14/2021 HISTORY: Covid pneumonia TECHNIQUE: Single frontal view of the chest is obtained. FINDINGS: Bibasilar increased attenuation is present within the lungs. No evident pneumothorax or pl eural effusion. Cardiac mediastinal silhouette is stable. Apical lucency could be due to underlying e mphysema. IMPRESSION: Correlate for pneumonia versus atelectasis.
[2021-02-16] MEDS: DEXAMETHASONE SOD PHOSPHATE 10 MG/ML 1 ML VIAL IVP SCH (08:21)
[2021-02-16] MEDS: COLCHICINE 0.6 MG EACH PO SCH ×2 (08:21→20:12)
[2021-02-16] MEDS: ZINC SULFATE 220 MG CAP PO SCH (08:21)
[2021-02-16] MEDS: ENOXAPARIN 40 MG/0.4 ML SYRINGE SQ SCH (08:21)
[2021-02-16] MEDS: CHOLECALCIFEROL 10 MCG (400 IU) TABLET PO SCH (08:21)
[2021-02-16] MEDS: ASCORBIC ACID 500 MG TAB PO SCH (08:21)
[2021-02-16 12:15] LABS: Basophils % (A) 0 %; Eosinophils % (A) 0 %; HCT 49.2 % (39.0-53.0); HGB 15.7 gm/dL (13.0-17.5); Lymphocytes # (A) 0.9 k/uL (1.0-4.8); Lymphocytes % (A) 9 %; MCHC 31.9 g/dL (31.0-37.0); MCV 97.1 fL (80.0-100.0); Mean Platelet Volume 8.8; Monocytes # (A) 0.5 k/uL (0-1.0); Monocytes % (A) 5 %; Neutrophils # (A) 8.6 k/uL (1.3-7.7); Neutrophils % (A) 85 %; Platelet Count 319 k/uL (150-450); RBC 5.07 m/uL (4.30-5.90); RDW 12.8 % (11.5-15.5); WBC 10.2 k/uL (3.8-10.6)
--- NOTE | 2021-02-16 12:24 | P.PN ---
Subjective Progress Note Date: 02/16/21 History of Presenting Illness: Patient is a very pleasant 65-year-old male with a past medical history of former nicotine use, hypertension, and seizure disorder. He presented to the emergency department on 02/14/21 with a chief complaint of shortness of breath. Patient reportedly began experiencing cough, fatigue, and shortness of breath a few days ago and went to the urgent care where he reportedly tested positive for Covid 19 virus and was found to be hypoxic with SpO2 of 90% and sent to the ER for further evaluation. Upon arrival to the emergency department patient was found to be hypoxic at 88% on room air and have a low-grade temp of 100.1F. Art kumari currently requiring oxygen supplementation 5 L O2 with SpO2 of 91%. A chest x-ray was completed revealing bilateral increased opacities mid to lower lung. Patient was started on Remdesivir, zinc, vitamin C, vitamin D, Lovenox, and Decadron. Labs completed revealing slightly elevated d-dimer of 0.61 and CRP 5.8. Patient admitted under our services with consultation to pulmonology. Patient seen and fully evaluated at the bedside this morning he reports shortness of breath with rest significantly increasing with minimal exertion. He states this is accompanied by a dry cough and body aches. Patient denies having any headache, lightheadedness, dizziness, chest pain, palpitations, abdom inal pain, nausea, vomiting, or experiencing any numbness/tingling/weakness/swelling in his extremities. Patient reports he continues to have a good appetite and denies having loss of taste or smell. Patient is unvaccinated for Covid 19 virus. Physical exam: Patient seen and fully evaluated at the bedside this morning. His oxygenation needs have increased and he is up to 9 L high flow nasal cannula with SpO2 maintaining at 93%. Patient reports continued dry cough and shortness of breath with minimal exertion such as adjusting himself in the chair. Patient reports improvement of body aches but states continued dry cough. He denies having any headache, lightheadedness, dizziness, chest pain, palpitations, abdominal pain, nausea, vomiting, or experiencing any numbness/tingling/weakness/swelling in his extremities. Patient reports he is very anxious as his ex- is currently down in the emergency department being admitted for Covid Pneumonia and is not doing very well. Morning labs delayed and currently pending results. Vital signs reviewed and stable. General: Nontoxic, no distress and appears stated age. Derm: Skin warm and dry, normal coloration for ethnicity. Head: Atraumatic, normocephalic and symmetric. Eyes: EOMs intact, no lid lag, and anicteric sclera Mouth: no lip lesions, mucus membranes moist Cardiovascular: regular rate and rhythm with normal S1S2, no murmur, positive posterior tibial pulses bilaterally, and cap refill < 2 seconds. Lungs: Respirations even, regular, and unlabored at rest on 9L O2 via HFNC. Noted conversational dyspnea. Lungs diminished with bibasilar crackles. No wheezing or rhonchi. Abdominal: soft, nontender to palpation, no guarding, no appreciable organomegaly Ext: ROM intact. No gross muscle atrophy, no edema, no contractures Neuro: Speech clear, face symmetrical and CN II-XII grossly intact with no noted focal neuro deficits Psych: Alert and oriented to person, place, time, and situation. Appropriate and pleasant affect. Assessment and Plan of Care: Acute Respiratory Failure with Hypoxia secondary to Covid 19 pneumonia. -Oxygenation to be administered and titrated as needed to maintain SPO2 equal to or greater than 90% -Telemetry monitoring. -Remdesivir day 06/21 -Zinc, vitamin C and Vitamin D -Steroids: Decadron dose 06/27 -Pulmonary following, appreciate further recommendations. -Follow inflammatory markers with repeat a.m labs. Hypertension Monitor vital signs. Patient is currently not on any antihypertensive medication and currently blood pressure is stable. Seizure disorder Patient reports being seizure-free for many years and no longer taking antiepileptic medications. We will place patient on seizure precautions and monitor. The patient is admitted with an anticipated greater than 2 midnight stay for evaluation of Acute hypoxic respiratory failure due to covid pneumonia CODE STATUS: Full code DVT prophylaxis: Lovenox Discussed with: Patient and RN Anticipated discharge date: clinical course to determine Anticipated discharge place: Home A total of 45 minutes was spent on the care of this complex patient more than 50% of the time was spent in counseling and care coordination. Objective - Vital Signs Vital signs: Vital Signs Temp 97.9 F 02/16/21 05:58 Pulse 74 02/16/21 05:58 Resp 15 02/16/21 05:58 BP 157/94 02/16/21 05:58 Pulse Ox 93 L 02/16/21 08:44 Intake & Output 02/15/21 02/16/21 02/16/21 18:59 06:59 18:59 Intake Total 250 Balance 250 Intake: Intake, IV Titration 250 Amount Remdesivir 100 mg In 250 Sodium Chloride 0.9% 250 ml @ 250 mls/hr IVPB DAILY@1600 [facility] Rx#: [id number] Other: # Voids 2 - Labs CBC & Chem 7: 02/16/21 11:40 02/14/21 11:37
[2021-02-16 12:36] LABS: ALT 32 U/L (4-49); AST 56 U/L (17-59); African American GFR (CKD) >90 (>60 ml/min/1.73 sqM); Albumin 3.2 g/dL (3.5-5.0); Albumin/Globulin Ratio 1.1; Alkaline Phosphatase 62 U/L (38-126); Anion Gap 5 mmol/L; Blood Urea Nitrogen 31 mg/dL (9-20); C Reactive Protein 2.9 mg/dL (<1.0); Calcium 9.1 mg/dL (8.4-10.2); Carbon Dioxide 29 mmol/L (22-30); Chloride 103 mmol/L (98-107); Glucose 124 mg/dL (74-99); LDH 1169 U/L (313-618); Non-African American GFR(CKD) >90 (>60 ml/min/1.73 sqM); Potassium 4.7 mmol/L (3.5-5.1); Sodium 137 mmol/L (137-145); Total Bilirubin 0.4 mg/dL (0.2-1.3); Total Protein 6.2 g/dL (6.3-8.2)
--- NOTE | 2021-02-16 14:54 | P.PN ---
Subjective Progress Note Date: 02/16/21 Principal diagnosis: COVID-19 pneumonia This is a very pleasant 65-year-old male patient with history of hypertension, osteoarthritis, previous episode pneumonia, never smoker, seizure disorder, patient is not on any prescription medications on a regular basis who presented to the emergency department on 02/14/2021 today history of fatigue, cough, fever, and worsening dyspnea, patient tested positive for COVID-19 at the urgent care clinic and he was found to be hypoxic with the pulse ox of 80-90% and was sent to the emergency department for further evaluation and treatment. No nausea or vomiting, no abdominal pain, no chest pain. No history of chronic lung disease. he is a former smoker. His pulse ox was 88% on room air in the emergency department, he did have a fever with temp of 100.1F, he is currently on 4 L of oxygen the pulse ox of 90-94%. He is short of breath with exertion. Does have a dry cough. Chest x-ray showing bilateral increased opacities in the mid to lower lung greatest at the bases in the periphery consistent with COVID- 19 infection. CBC was positive for lymphopenia with lymphocyte, 0.6, Coag profile was within normal limits, sodium was 136, the residential lites were unremarkable, BUN is 24 creatinine 0.58. His AST was 66, ALT was 30, alkaline phosphatase was 62, CRP was 5.8, his LDH level is pending right now, d-dimer has been ordered and pending. He was started on Decadron, prophylactic Lovenox, and we were asked to see the patient in regards to his COVID-19 pneumonia The patient is seen today 02/15/2021 in follow-up on the regular medical floor. He is currently awake and alert in no acute distress. Sitting up in a chair at the bedside. He is up to 5 L high flow nasal cannula to maintain O2 saturation in the low 90s. This is day #2 of Remdesivir. He remains on colcrys, Decadron, Lovenox, vitamin supplements. The patient is seen today 02/16/2021 in follow-up on the regular medical floor. He is awake and alert in no acute distress. Sitting up in a chair at the bedside. Breathing easier today compared to yesterday. He was up as high as 9 L high flow nasal cannula. Currently at 8 L. 96% oxygen saturation. He's been afebrile. Hemodynamically stable. Chest x-ray continues to show bibasilar opacities. White count 10.2. Hemoglobin 15.7. Lymphocytes 0.9. D-dimer 0.52. Sodium 137. Potassium 4.7. Creatinine 0.55. LDH 1169. C-reactive protein 2.9. Trending down. Day #3 of Remdesivir. He remains on Decadron, Colcrys, Lovenox, vitamin supplements. Objective - Vital Signs Vital signs: Vital Signs Temp 97.7 F 02/16/21 10:00 Pulse 74 02/16/21 10:00 Resp 20 02/16/21 10:00 BP 132/82 02/16/21 10:00 Pulse Ox 96 02/16/21 10:00 Intake & Output 02/15/21 02/16/21 02/16/21 18:59 06:59 18:59 Intake Total 250 250 Balance 250 250 Intake: Intake, IV Titration 250 250 Amount Remdesivir 100 mg In 250 250 Sodium Chloride 0.9% 250 ml @ 250 mls/hr IVPB DAILY@1600 [facility] Rx#: [id number] Other: # Voids 2 - Exam GENERAL EXAM: Alert, very pleasant, 65-year-old male patient, on 8 L of oxygen pulse ox is 91% comfortable in no apparent distress. HEAD: Normocephalic/atraumatic. EYES: Normal reaction of pupils, equal size. Conjunctiva pink, sclera white. NOSE: Clear with pink turbinates. THROAT: No erythema or exudates. NECK: No masses, no JVD, no thyroid enlargement, no adenopathy. CHEST: No chest wall deformity. Symmetrical expansion. LUNGS: Equal air entry with crackles at bilateral bases CVS: Regular rate and rhythm, normal S1 and S2, no gallops, no murmurs, no rubs ABDOMEN: Soft, nontender. No hepatosplenomegaly, normal bowel sounds, no guarding or rigidity. EXTREMITIES: No clubbing, no edema, no cyanosis, 2+ pulses and upper and lower extremities. MUSCULOSKELETAL: Muscle strength and tone normal. SPINE: No scoliosis or deformity SKIN: No rashes CENTRAL NERVOUS SYSTEM: No focal deficits, tone is normal in all 4 extremities. PSYCHIATRIC: Alert and oriented -3. Appropriate affect. Intact judgment and insight. - Labs CBC & Chem 7: 02/16/21 11:40 02/16/21 11:40 Labs: Abnormal Lab Results - Last 24 Hours (Table) 02/16/21 02/16/21 Range/Units 11:40 11:40 Neutrophils # 8.6 H (1.3-7.7) k/uL Lymphocytes # 0.9 L (1.0-4.8) k/uL BUN 31 H (9-20) mg/dL Creatinine 0.55 L (0.66-1.25) mg/dL Glucose 124 H (74-99) mg/dL Lactate Dehydrogenase 1169 H (313-618) U/L C-Reactive Protein 2.9 H (<1.0) mg/dL Total Protein 6.2 L (6.3-8.2) g/dL Albumin 3.2 L (3.5-5.0) g/dL Assessment and Plan Assessment: 1 Acute hypoxic respiratory failure related to COVID-19 pneumonia, onset of symptoms was 2 days prior to presentation. Patient is a non-vaccinated individual. He is on 8 L of supplemental oxygen, Remdesivir started on 02/14/2021 2 Dyspnea, fever, cough related to the above, improving 3 Hypertension 4 Osteoarthritis 5 Previous episode of pneumonia 6 Seizure disorder, has not had episode of seizure in many years not on any maintenance medications 7 Former smoker 8 Migraine headaches Plan: The patient was seen and evaluated by Dr. Barton Chest x-ray and labs reviewed Day #3 of Remdesivir Continue Colcrys, Lovenox, Decadron, vitamin supplements Titrate the FiO2 as tolerated We will continue to follow I, the cosigning physician, performed a history & physical examination of the patient. Lungs sounds with crackles in the bilateral posterior bases. Maintaining good O2 saturations in the 90s on 8 L/m per nasal cannula I discussed the assessment and plan of care with my nurse practitioner, Lorenza Esquivel. I attest to the above note as dictated by her.
[2021-02-16 15:00] LABS: Erythrocyte Sedimentation Rate 22 mm/hr (0-15)
[2021-02-16] MEDS: REMDESIVIR 100 MG in SODIUM CHLORIDE 0.9% 250 ML IVPB SCH (15:46)
[2021-02-17] MEDS: IBUPROFEN 400 MG TAB PO PRN ×2 (06:19→20:16)
[2021-02-17] MEDS: CHOLECALCIFEROL 10 MCG (400 IU) TABLET PO SCH (07:58)
[2021-02-17] MEDS: COLCHICINE 0.6 MG EACH PO SCH ×2 (07:58→20:09)
[2021-02-17] MEDS: ENOXAPARIN 40 MG/0.4 ML SYRINGE SQ SCH (07:58)
[2021-02-17] MEDS: DEXAMETHASONE SOD PHOSPHATE 10 MG/ML 1 ML VIAL IVP SCH (07:58)
[2021-02-17] MEDS: ASCORBIC ACID 500 MG TAB PO SCH (07:58)
[2021-02-17] MEDS: ZINC SULFATE 220 MG CAP PO SCH (07:58)
--- NOTE | 2021-02-17 12:12 | P.PN ---
Subjective Progress Note Date: 02/17/21 History of Presenting Illness: Patient is a very pleasant 65-year-old male with a past medical history of former nicotine use, hypertension, and seizure disorder. He presented to the emergency department on 02/14/21 with a chief complaint of shortness of breath. Patient reportedly began experiencing cough, fatigue, and shortness of breath a few days ago and went to the urgent care where he reportedly tested positive for Covid 19 virus and was found to be hypoxic with SpO2 of 90% and sent to the ER for further evaluation. Upon arrival to the emergency department patient was found to be hypoxic at 88% on room air and have a low-grade temp of 100.1F. Art kumari currently requiring oxygen supplementation 5 L O2 with SpO2 of 91%. A chest x-ray was completed revealing bilateral increased opacities mid to lower lung. Patient was started on Remdesivir, zinc, vitamin C, vitamin D, Lovenox, and Decadron. Labs completed revealing slightly elevated d-dimer of 0.61 and CRP 5.8. Patient admitted under our services with consultation to pulmonology. Patient is unvaccinated for Covid 19 virus. Physical exam: Patient seen and fully evaluated at the bedside this morning. Inflammatory markers improving. D-dimer 0.52, LDH 464, and CRP of 1.00. His oxygenation also improving as he has decreased from 9 down to 7 L high flow nasal cannula and currently maintaining SpO2 at 92%. Patient reports feeling slightly better today and states that his ex- was not as sick as he thought and is doing much better and may possibly even be discharged home today. Patient denies having any headache, lightheadedness, dizziness, chest pain, palpitations, or experiencing any numbness/tingling/weakness/swelling in his extremities. Vital signs stable. Vital signs reviewed and stable. General: Nontoxic, no distress and appears stated age. Derm: Skin warm and dry, normal coloration for ethnicity. Head: Atraumatic, normocephalic and symmetric. Eyes: EOMs intact, no lid lag, and anicteric sclera Mouth: no lip lesions, mucus membranes moist Cardiovascular: regular rate and rhythm with normal S1S2, no murmur, positive posterior tibial pulses bilaterally, and cap refill < 2 seconds. Lungs: Respirations even, regular, and unlabored at rest on 7L O2 via HFNC. Noted conversational dyspnea. Lungs diminished with bibasilar crackles. No wheezing or rhonchi. Abdominal: soft, nontender to palpation, no guarding, no appreciable org anomegaly Ext: ROM intact. No gross muscle atrophy, no edema, no contractures Neuro: Speech clear, face symmetrical and CN II-XII grossly intact with no noted focal neuro deficits Psych: Alert and oriented to person, place, time, and situation. Appropriate and pleasant affect. Assessment and Plan of Care: Acute Respiratory Failure with Hypoxia secondary to Covid 19 pneumonia in unvaccinated person -Oxygenation to be administered and titrated as needed to maintain SPO2 equal to or greater than 90% -Telemetry monitoring. -Remdesivir dose 07/23 due today -Zinc, vitamin C and Vitamin D -Steroids: Decadron day 07/28 -Pulmonary following, appreciate further recommendations. -Follow inflammatory markers with repeat a.m labs. Hypertension Monitor vital signs. Patient is currently not on any antihypertensive medication and currently blood pressure is stable. Seizure disorder Patient reports being seizure-free for many years and no longer taking antiepileptic medications. We will place patient on seizure precautions and monitor. CODE STATUS: Full code DVT prophylaxis: Lovenox Discussed with: Patient and RN Anticipated discharge date: clinical course to determine Anticipated discharge place: Home A total of 45 minutes was spent on the care of this complex patient more than 50% of the time was spent in counseling and care coordination. Objective - Vital Signs Vital signs: Vital Signs Temp 98.0 F 02/17/21 06:19 Pulse 72 02/17/21 06:19 Resp 17 02/17/21 06:19 BP 140/93 02/17/21 06:19 Pulse Ox 92 L 02/17/21 06:19 Intake & Output 02/16/21 02/17/21 02/17/21 18:59 06:59 18:59 Intake Total 250 Balance 250 Intake: Intake, IV Titration 250 Amount Remdesivir 100 mg In 250 Sodium Chloride 0.9% 250 ml @ 250 mls/hr IVPB DAILY@1600 [facility] Rx#: [id number] - Labs CBC & Chem 7: 02/16/21 11:40 02/16/21 11:40 Labs: Abnormal Lab Results - Last 24 Hours (Table) 02/16/21 02/16/21 Range/Units 11:40 11:40 Neutrophils # 8.6 H (1.3-7.7) k/uL Lymphocytes # 0.9 L (1.0-4.8) k/uL ESR 22 H (0-15) mm/hr BUN 31 H (9-20) mg/dL Creatinine 0.55 L (0.66-1.25) mg/dL Glucose 124 H (74-99) mg/dL Lactate Dehydrogenase 1169 H (313-618) U/L C-Reactive Protein 2.9 H (<1.0) mg/dL Total Protein 6.2 L (6.3-8.2) g/dL Albumin 3.2 L (3.5-5.0) g/dL
--- NOTE | 2021-02-17 15:10 | P.PN ---
Subjective Progress Note Date: 02/17/21 Principal diagnosis: COVID-19 pneumonia This is a very pleasant 65-year-old male patient with history of hypertension, osteoarthritis, previous episode pneumonia, never smoker, seizure disorder, patient is not on any prescription medications on a regular basis who presented to the emergency department on 02/14/2021 today history of fatigue, cough, fever, and worsening dyspnea, patient tested positive for COVID-19 at the urgent care clinic and he was found to be hypoxic with the pulse ox of 80-90% and was sent to the emergency department for further evaluation and treatment. No nausea or vomiting, no abdominal pain, no chest pain. No history of chronic lung disease. he is a former smoker. His pulse ox was 88% on room air in the emergency department, he did have a fever with temp of 100.1F, he is currently on 4 L of oxygen the pulse ox of 90-94%. He is short of breath with exertion. Does have a dry cough. Chest x-ray showing bilateral increased opacities in the mid to lower lung greatest at the bases in the periphery consistent with COVID- 19 infection. CBC was positive for lymphopenia with lymphocyte, 0.6, Coag profile was within normal limits, sodium was 136, the residential lites were unremarkable, BUN is 24 creatinine 0.58. His AST was 66, ALT was 30, alkaline phosphatase was 62, CRP was 5.8, his LDH level is pending right now, d-dimer has been ordered and pending. He was started on Decadron, prophylactic Lovenox, and we were asked to see the patient in regards to his COVID-19 pneumonia The patient is seen today 02/15/2021 in follow-up on the regular medical floor. He is currently awake and alert in no acute distress. Sitting up in a chair at the bedside. He is up to 5 L high flow nasal cannula to maintain O2 saturation in the low 90s. This is day #2 of Remdesivir. He remains on colcrys, Decadron, Lovenox, vitamin supplements. The patient is seen today 02/16/2021 in follow-up on the regular medical floor. He is awake and alert in no acute distress. Sitting up in a chair at the bedside. Breathing easier today compared to yesterday. He was up as high as 9 L high flow nasal cannula. Currently at 8 L. 96% oxygen saturation. He's been afebrile. Hemodynamically stable. Chest x-ray continues to show bibasilar opacities. White count 10.2. Hemoglobin 15.7. Lymphocytes 0.9. D-dimer 0.52. Sodium 137. Potassium 4.7. Creatinine 0.55. LDH 1169. C-reactive protein 2.9. Trending down. Day #3 of Remdesivir. He remains on Decadron, Colcrys, Lovenox, vitamin supplements. The patient is seen today 01/20/2021 in follow-up on the regular medical floor. He is currently sitting up in a chair at the bedside. Awake and alert in no acute distress. Doing about the same. No worse. He is currently requiring 7 L high flow nasal cannula to maintain O2 saturation in the 90s. This is day #4 of Remdesivir. LDH 464. C-reactive protein 1.0. D-dimer 0.52. He is continued on Colcrys, Decadron, Lovenox, vitamin supplements. Objective - Vital Signs Vital signs: Vital Signs Temp 98.0 F 02/17/21 06:19 Pulse 72 02/17/21 06:19 Resp 17 02/17/21 06:19 BP 140/93 02/17/21 06:19 Pulse Ox 92 L 02/17/21 06:19 Intake & Output 02/16/21 02/17/21 02/17/21 18:59 06:59 18:59 Intake Total 250 250 Balance 250 250 Intake: Intake, IV Titration 250 250 Amount Remdesivir 100 mg In 250 250 Sodium Chloride 0.9% 250 ml @ 250 mls/hr IVPB DAILY@1600 [facility] Rx#: [id number] - Exam GENERAL EXAM: Alert, very pleasant, 65-year-old male patient, on 7 L of oxygen pulse ox is 92% comfortable in no apparent distress. HEAD: Normocephalic/atraumatic. EYES: Normal reaction of pupils, equal size. Conjunctiva pink, sclera white. NOSE: Clear with pink turbinates. THROAT: No erythema or exudates. NECK: No masses, no JVD, no thyroid enlargement, no adenopathy. CHEST: No chest wall deformity. Symmetrical expansion. LUNGS: Equal air entry with crackles at bilateral bases CVS: Regular rate and rhythm, normal S1 and S2, no gallops, no murmurs, no rubs ABDOMEN: Soft, nontender. No hepatosplenomegaly, normal bowel sounds, no guarding or rigidity. EXTREMITIES: No clubbing, no edema, no cyanosis, 2+ pulses and upper and lower extremities. MUSCULOSKELETAL: Muscle strength and tone normal. SPINE: No scoliosis or deformity SKIN: No rashes CENTRAL NERVOUS SYSTEM: No focal deficits, tone is normal in all 4 extremities. PSYCHIATRIC: Alert and oriented -3. Appropriate affect. Intact judgment and insight. - Labs CBC & Chem 7: 02/16/21 11:40 02/16/21 11:40 Labs: Abnormal Lab Results - Last 24 Hours (Table) 02/17/21 Range/Units 07:07 Lactate Dehydrogenase 464 H (120-246) U/L C-Reactive Protein 1.00 H (0.00-0.80) mg/dL Assessment and Plan Assessment: 1 Acute hypoxic respiratory failure related to COVID-19 pneumonia, onset of symptoms was 2 days prior to presentation. Patient is a non-vaccinated individual. He is on 7 L of supplemental oxygen, Remdesivir started on 02/14/2021 2 Dyspnea, fever, cough related to the above, improving 3 Hypertension 4 Osteoarthritis 5 Previous episode of pneumonia 6 Seizure disorder, has not had episode of seizure in many years not on any maintenance medications 7 Former smoker 8 Migraine headaches Plan: The patient was seen and evaluated by Dr. Barton Currently stable on 7 L nasal cannula Day #4 of Remdesivir Continue Colcrys, Lovenox, Decadron, vitamin supplements Titrate the FiO2 as tolerated We will continue to follow I, the cosigning physician, performed a history & physical examination of the patient. Lungs sounds with crackles in the bilateral posterior bases. Maintaining good O2 saturations in the 90s on 7 L/m per nasal cannula I discussed the assessment and plan of care with my nurse practitioner, Lorenza Esquivel. I attest to the above note as dictated by her.
[2021-02-17] MEDS: REMDESIVIR 100 MG in SODIUM CHLORIDE 0.9% 250 ML IVPB SCH (15:14)
[2021-02-18] MEDS: IBUPROFEN 400 MG TAB PO PRN ×2 (07:20→17:02)
[2021-02-18] MEDS: ZINC SULFATE 220 MG CAP PO SCH (07:20)
[2021-02-18] MEDS: ASCORBIC ACID 500 MG TAB PO SCH (07:21)
[2021-02-18] MEDS: COLCHICINE 0.6 MG EACH PO SCH (07:21)
[2021-02-18] MEDS: CHOLECALCIFEROL 10 MCG (400 IU) TABLET PO SCH (07:21)
[2021-02-18] MEDS: ENOXAPARIN 40 MG/0.4 ML SYRINGE SQ SCH (07:22)
[2021-02-18] MEDS: DEXAMETHASONE SOD PHOSPHATE 10 MG/ML 1 ML VIAL IVP SCH (07:22)
--- NOTE | 2021-02-18 13:24 | P.PN ---
Subjective Progress Note Date: 02/18/21 Principal diagnosis: hypoxia Feeling well, no subjective sob. No pain, no fevers or chills. Objective - Vital Signs Vital signs: Vital Signs Temp 97.7 F 02/18/21 09:04 Pulse 77 02/18/21 09:04 Resp 18 02/18/21 09:04 BP 136/85 02/18/21 09:04 Pulse Ox 93 L 02/18/21 09:04 Intake & Output 02/17/21 02/18/21 02/18/21 18:59 06:59 18:59 Intake Total 250 Balance 250 Intake: Intake, IV Titration 250 Amount Remdesivir 100 mg In 250 Sodium Chloride 0.9% 250 ml @ 250 mls/hr IVPB DAILY@1600 [facility] Rx#: [id number] Other: # Voids 2 - Exam Constitutional: No acute distress, conversant, pleasant Eyes:Anicteric sclerae, moist conjunctiva, no lid-lag, PERRLA, ENMT: Oropharynx clear, no erythema, exudates Neck: Supple, FROM, no masses, or JVD, No carotid bruits, No thyromegaly Lungs: Clear to auscultation, Clear to percussion, Normal respiratory effort, no accessory muscle use Cardiovascular: Heart regular in rate and rhythm, No murmurs, gallops, or rubs, No peripheral edema Abdominal: Soft, Nontender, no guarding, rebound or rigidity, Normoactive bowel sounds, No hepatomegaly, No splenomegaly, No palpable mass Skin: Normal temperature, tone, texture, turgor, no induration, No subcutaneous nodules, No rash, lesions, No ulcers Extremities: No digital cyanosis, No clubbing, Pedal pulses intact and symmetrical, Radial pulses intact and symmetrical, No calf tenderness Psychiatric: Alert and oriented to person, place and time, appropriate affect, intact judgement Neuro: Muscles Strength 5/5 in all 4 extremities, Sensation to light touch grossly present throughout, Cranial nerves II-XII grossly intact, no focal sensory deficits - Labs CBC & Chem 7: 02/16/21 11:40 02/16/21 11:40 Assessment and Plan Plan: Acute Respiratory Failure with Hypoxia secondary to Covid 19 pneumonia in un vaccinated person -Oxygenation to be administered and titrated as needed to maintain SPO2 equal to or greater than 90% -Telemetry monitoring. -Remdesivir dose 5/5 due today -Zinc, vitamin C and Vitamin D -Steroids: Decadron day 08/27 -Pulmonary following, appreciate further recommendations. -Follow inflammatory markers with repeat a.m labs. Hypertension Monitor vital signs. Patient is currently not on any antihypertensive medication and currently blood pressure is stable. Seizure disorder Patient reports being seizure-free for many years and no longer taking antiepileptic medications. We will place patient on seizure precautions and monitor. CODE STATUS: Full code DVT prophylaxis: Lovenox Discussed with: Patient and RN Anticipated discharge date: clinical course to determine Anticipated discharge place: Home A total of 45 minutes was spent on the care of this complex patient more than 50% of the time was spent in counseling and care coordination.
--- NOTE | 2021-02-18 15:23 | P.PN ---
Subjective Progress Note Date: 02/18/21 Principal diagnosis: Coronavirus associated pneumonia. COVID-19 pneumonia This is a very pleasant 65-year-old male patient with history of hypertension, osteoarthritis, previous episode pneumonia, never smoker, seizure disorder, patient is not on any prescription medications on a regular basis who presented to the emergency department on 02/14/2021 today history of fatigue, cough, fever, and worsening dyspnea, patient tested positive for COVID-19 at the urgent care clinic and he was found to be hypoxic with the pulse ox of 80-90% and was sent to the emergency department for further evaluation and treatment. No nausea or vomiting, no abdominal pain, no chest pain. No history of chronic lung disease. he is a former smoker. His pulse ox was 88% on room air in the emergency department, he did have a fever with temp of 100.1F, he is currently on 4 L of oxygen the pulse ox of 90-94%. He is short of breath with exertion. Does have a dry cough. Chest x-ray showing bilateral increased opacities in the mid to lower lung greatest at the bases in the periphery consistent with COVID- 19 infection. CBC was positive for lymphopenia with lymphocyte, 0.6, Coag profi le was within normal limits, sodium was 136, the residential lites were unremarkable, BUN is 24 creatinine 0.58. His AST was 66, ALT was 30, alkaline phosphatase was 62, CRP was 5.8, his LDH level is pending right now, d-dimer has been ordered and pending. He was started on Decadron, prophylactic Lovenox, and we were asked to see the patient in regards to his COVID-19 pneumonia The patient is seen today 02/15/2021 in follow-up on the regular medical floor. He is currently awake and alert in no acute distress. Sitting up in a chair at the bedside. He is up to 5 L high flow nasal cannula to maintain O2 saturation in the low 90s. This is day #2 of Remdesivir. He remains on colcrys, Decadron, Lovenox, vitamin supplements. The patient is seen today 02/16/2021 in follow-up on the regular medical floor. He is awake and alert in no acute distress. Sitting up in a chair at the bedside. Breathing easier today compared to yesterday. He was up as high as 9 L high flow nasal cannula. Currently at 8 L. 96% oxygen saturation. He's been afebrile. Hemodynamically stable. Chest x-ray continues to show bibasilar opacities. White count 10.2. Hemoglobin 15.7. Lymphocytes 0.9. D-dimer 0.52. Sodium 137. Potassium 4.7. Creatinine 0.55. LDH 1169. C-reactive protein 2.9. Trending down. Day #3 of Remdesivir. He remains on Decadron, Colcrys, Lovenox, vitamin supplements. The patient is seen today 01/20/2021 in follow-up on the regular medical floor. He is currently sitting up in a chair at the bedside. Awake and alert in no acute distress. Doing about the same. No worse. He is currently requiring 7 L high flow nasal cannula to maintain O2 saturation in the 90s. This is day #4 of Remdesivir. LDH 464. C-reactive protein 1.0. D-dimer 0.52. He is continued on Colcrys, Decadron, Lovenox, vitamin supplements. Progress note dated 02/18/2021. The patient was seen again today in room 483. Currently, he seemed to do relatively well. He sitting up in bed. On room air, his saturations are 88- 89%. Today was day 5 of REM. Clinically, he was feeling better. Saturations on 2 L or 91%. Temperature, heart rate, respiratory rate, and blood pressure are all normal. No new laboratory data today. Chest x-ray from February 16 is reviewed. Objective - Vital Signs Vital signs: Vital Signs Temp 97.7 F 02/18/21 09:04 Pulse 77 02/18/21 09:04 Resp 18 02/18/21 09:04 BP 136/85 02/18/21 09:04 Pulse Ox 91 L 02/18/21 13:24 Intake & Output 02/17/21 02/18/21 02/18/21 18:59 06:59 18:59 Intake Total 250 Balance 250 Intake: Intake, IV Titration 250 Amount Remdesivir 100 mg In 250 Sodium Chloride 0.9% 250 ml @ 250 mls/hr IVPB DAILY@1600 [facility] Rx#: [id number] Other: # Voids 2 - Exam No acute distress, oriented 3. Currently on 2 L. Saturations 91-92%. HEENT examination is grossly unremarkable. Neck supple. Full range of motion. No adenopathy thyromegaly or neck vein distention. Cardiovascular examination reveals regular rhythm rate. S1-S2 normal. No S3 or S4. No discernible murmur noted. Heart rate 77 bpm. Lungs reveal mild bilateral scattered rhonchi. No wheezes or crackles. Breath sounds equal bilaterally. Abdomen soft bowel sounds are heard. No masses or tenderness. Extremities are intact. No cyanosis clubbing or edema. Skin is without rash or lesion. Neurologic examination is brief but nonfocal. - Labs CBC & Chem 7: 02/16/21 11:40 02/16/21 11:40 Assessment and Plan Assessment: Acute hypoxemic respiratory failure secondary to coronavirus associated pneumonia. Hypertension. Osteoarthritis. Prior history of pneumonia. History of seizure disorder. Previous history of tobacco use. History of migraine cephalgia. Plan: Plan dated 02/18/2021. The patient has completed 5 days of REM. The patient continues on other appropriate medications such as Lovenox, Decadron, and vitamin supplementation. The patient has been weaned down to 2 L. From our perspective, the patient cou ld be considered for possible discharge. We'll leave that up to the primary service. No additional recommendations are made. We will continue to follow the patient make recommendations where appropriate. Time with Patient: Less than 30
[2021-02-18] MEDS: REMDESIVIR 100 MG in SODIUM CHLORIDE 0.9% 250 ML IVPB SCH (15:33)
[2021-02-19] MEDS: IBUPROFEN 400 MG TAB PO PRN (06:14)
[2021-02-19] MEDS: DEXAMETHASONE SOD PHOSPHATE 10 MG/ML 1 ML VIAL IVP SCH (07:15)
--- NOTE | 2021-02-19 09:07 | XR ---
EXAMINATION TYPE: XR chest 1V portable DATE OF EXAM: 02/19/2021 COMPARISON: Chest x-ray 02/16/2021 HISTORY: Covid. 19 pneumonia TECHNIQUE: Single frontal view of the chest is obtained. FINDINGS: Patchy peripheral densities are present predominantly towards the lung bases. No evident p neumothorax or pleural effusion. Cardiac mediastinal silhouette is stable. IMPRESSION: Findings consistent with patient's history.
[2021-02-19] MEDS: CHOLECALCIFEROL 10 MCG (400 IU) TABLET PO SCH (09:24)
[2021-02-19] MEDS: ENOXAPARIN 40 MG/0.4 ML SYRINGE SQ SCH (09:24)
[2021-02-19] MEDS: ASCORBIC ACID 500 MG TAB PO SCH (09:24)
[2021-02-19] MEDS: ZINC SULFATE 220 MG CAP PO SCH (09:24)
[2021-02-19 09:52] VITALS: BP 139/87; PULSE 66; RESP 24; TEMP 97.7
--- NOTE | 2021-02-19 11:35 | P.PN ---
Subjective Progress Note Date: 02/19/21 Principal diagnosis: Coronavirus associated pneumonia. COVID-19 pneumonia This is a very pleasant 65-year-old male patient with history of hypertension, osteoarthritis, previous episode pneumonia, never smoker, seizure disorder, patient is not on any prescription medications on a regular basis who presented to the emergency department on 02/14/2021 today history of fatigue, cough, fever, and worsening dyspnea, patient tested positive for COVID-19 at the urgent care clinic and he was found to be hypoxic with the pulse ox of 80-90% and was sent to the emergency department for further evaluation and treatment. No nausea or vomiting, no abdominal pain, no chest pain. No history of chronic lung disease. he is a former smoker. His pulse ox was 88% on room air in the emergency department, he did have a fever with temp of 100.1F, he is currently on 4 L of oxygen the pulse ox of 90-94%. He is short of breath with exertion. Does have a dry cough. Chest x-ray showing bilateral increased opacities in the mid to lower lung greatest at the bases in the periphery consistent with COVID- 19 infection. CBC was positive for lymphopenia with lymphocyte, 0.6, Coag profi le was within normal limits, sodium was 136, the residential lites were unremarkable, BUN is 24 creatinine 0.58. His AST was 66, ALT was 30, alkaline phosphatase was 62, CRP was 5.8, his LDH level is pending right now, d-dimer has been ordered and pending. He was started on Decadron, prophylactic Lovenox, and we were asked to see the patient in regards to his COVID-19 pneumonia The patient is seen today 02/15/2021 in follow-up on the regular medical floor. He is currently awake and alert in no acute distress. Sitting up in a chair at the bedside. He is up to 5 L high flow nasal cannula to maintain O2 saturation in the low 90s. This is day #2 of Remdesivir. He remains on colcrys, Decadron, Lovenox, vitamin supplements. The patient is seen today 02/16/2021 in follow-up on the regular medical floor. He is awake and alert in no acute distress. Sitting up in a chair at the bedside. Breathing easier today compared to yesterday. He was up as high as 9 L high flow nasal cannula. Currently at 8 L. 96% oxygen saturation. He's been afebrile. Hemodynamically stable. Chest x-ray continues to show bibasilar opacities. White count 10.2. Hemoglobin 15.7. Lymphocytes 0.9. D-dimer 0.52. Sodium 137. Potassium 4.7. Creatinine 0.55. LDH 1169. C-reactive protein 2.9. Trending down. Day #3 of Remdesivir. He remains on Decadron, Colcrys, Lovenox, vitamin supplements. The patient is seen today 01/20/2021 in follow-up on the regular medical floor. He is currently sitting up in a chair at the bedside. Awake and alert in no acute distress. Doing about the same. No worse. He is currently requiring 7 L high flow nasal cannula to maintain O2 saturation in the 90s. This is day #4 of Remdesivir. LDH 464. C-reactive protein 1.0. D-dimer 0.52. He is continued on Colcrys, Decadron, Lovenox, vitamin supplements. Progress note dated 02/18/2021. The patient was seen again today in room 483. Currently, he seemed to do relatively well. He sitting up in bed. On room air, his saturations are 88- 89%. Today was day 5 of REM. Clinically, he was feeling better. Saturations on 2 L or 91%. Temperature, heart rate, respiratory rate, and blood pressure are all normal. No new laboratory data today. Chest x-ray from February 16 is reviewed. Progress note dated 02/19/2021. The patient is again seen today in room 483. He is currently on room air. Is not receiving any IV fluids. His saturations are excellent. He did complete 5 days of REM. Currently, his vital signs are stable. He might be someone who could be considered for possible discharge. He states his breathing is much improved, although he does have shortness of breath on exertion. There are no new labs today. Chest x-ray today, on February 19, shows basilar infiltrates consistent with coronavirus associated pneumonia. Objective - Vital Signs Vital signs: Vital Signs Temp 97.7 F 02/19/21 09:51 Pulse 66 02/19/21 09:51 Resp 24 02/19/21 09:51 BP 139/87 02/19/21 09:51 Pulse Ox 91 L 02/19/21 11:25 Intake & Output 02/18/21 02/19/21 02/19/21 18:59 06:59 18:59 Other: # Voids 2 1 # Bowel Movements 1 - Exam No acute distress, oriented 3. Currently on room air. Saturations are 91%. HEENT examination is grossly unremarkable. Neck supple. Full range of motion. No adenopathy thyromegaly or neck vein distention. Cardiovascular examination reveals regular rhythm rate. S1-S2 normal. No S3 or S4. No discernible murmur noted. Heart rate 66 bpm. Lungs reveal mild bilateral scattered rhonchi. No wheezes or crackles. Breath sounds equal bilaterally. Abdomen soft bowel sounds are heard. No masses or tenderness. Extremities are intact. No cyanosis clubbing or edema. Skin is without rash or lesion. Neurologic examination is brief but nonfocal. - Labs CBC & Chem 7: 02/16/21 11:40 02/16/21 11:40 Assessment and Plan Assessment: Acute hypoxemic respiratory failure secondary to coronavirus associated pneumonia. Hypertension. Osteoarthritis. Prior history of pneumonia. History of seizure disorder. Previous history of tobacco use. History of migraine cephalgia. Plan: Plan dated 02/18/2021. The patient has completed 5 days of REM. The patient continues on other appropriate medications such as Lovenox, Decadron, and vitamin supplementation. The patient has been weaned down to 2 L. From our perspective, the patient could be considered for possible discharge. We'll leave that up to the primary service. No additional recommendations are made. We will continue to follow the patient make recommendations where appropriate. Plan dated 02/19/2021. The patient continues to show significant improvement. At rest, on room air, saturations are in the low 90s. He does have some very mild shortness of breath on exertion. The patient's on appropriate medications. The patient completed 5 days of REM. The patient could be considered for possible discharge. We will leave that up to the primary service. No additional recommendations are made at this time. Time with Patient: Less than 30
--- NOTE | 2021-02-19 12:51 | P.DS ---
Providers Date of admission: 02/14/21 12:23 Expected date of discharge: 02/19/21 Attending physician: Edelmira Gonzalez DO Consults: 02/14/21 13:07 Consult Physician Urgent Consulting Provider: Eliezer Barton Consult Reason/Comments: Covid pneumonia, hypoxia Do you want consulting provider notified?: Yes Primary care physician: Stated None Hospital Course: Discharge Diagnosis: Acute Respiratory Failure with Hypoxia secondary to Covid 19 pneumonia in unvaccinated person Hypertension Seizure disorder Hospital Course: Patient is a very pleasant 65-year-old male with a past medical history of former nicotine use, hypertension, and seizure disorder. He presented to the emergency department on 02/14/21 with a chief complaint of shortness of breath. Patient reportedly began experiencing cough, fatigue, and shortness of breath a few days ago and went to the urgent care where he reportedly tested positive for Covid 19 virus and was found to be hypoxic with SpO2 of 90% and sent to the ER for further evaluation. Upon arrival to the emergency department patient was found to be hypoxic at 88% on room air and have a low-grade temp of 100.1F. Patient required oxygen supplementation. A chest x-ray was completed revealing bilateral increased opacities mid to lower lung. Patient was started on Remdesivir, zinc, vitamin C, vitamin D, Lovenox, and Decadron. Labs completed revealing slightly elevated d-dimer of 0.61 and CRP 5.8. Patient admitted under our services with consultation to pulmonology. Patient is unvaccinated for Covid 19 virus. Pt had 5 day hospitalization and over this time he required high flow oxygen supplementation as and completed five-day course of Remdesivir. Pt has been successfully weaned off of oxygen and is maintaining SPO2 at 91% at rest and 90% or above with ambulation. Patient is being discharged home with vitamin C, vitamin D, zinc, and Decadron 6 mg daily for an additional 5 day course to complete 10 day course of steroids. Pt instructed to maintain isolation as we discussed from 14 days of positive test on 02/14/21 as well as being symptom-free for 2 days with earliest time out of isolation being 02/27/21. Patient encouraged to get Covid vaccination in 90 days. He is currently medically stable for discharge home and has also been cleared by pulmonary. Pt instructed to follow-up outpatient with PCP and pulmonology. Physical exam: Patient seen and fully evaluated at the bedside this morning. He is on room air and reports feeling great this morning. Patient states that he is ready to go home. Patient ambulatory in room without any difficulties he does continue to report some mild shortness of breath with exertion, but states this is easily controlled by taking a break and resting. Ambulatory pulse ox was completed and patient maintaining SpO2 greater than 90% at all times. Patient medically stable for discharge home at this time. He denies having any headache, lightheadedness, dizziness, chest pain, palpitations, or experiencing any numbness/tingling/weakness in his extremities. Vital signs reviewed and stable. General: Nontoxic, no distress and appears stated age. Derm: Skin warm and dry, normal coloration for ethnicity. Head: Atraumatic, normocephalic and symmetric. Eyes: EOMs intact, no lid lag, and anicteric sclera Mouth: no lip lesions, mucus membranes moist Cardiovascular: regular rate and rhythm with normal S1S2, no murmur, positive posterior tibial pulses bilaterally, and cap refill < 2 seconds. Lungs: Respirations even, regular, and unlabored at rest on 7L O2 via HFNC. Noted conversational dyspnea. Lungs diminished with bibasilar crackles. No w heezing or rhonchi. Abdominal: soft, nontender to palpation, no guarding, no appreciable organomegaly Ext: ROM intact. No gross muscle atrophy, no edema, no contractures Neuro: Speech clear, face symmetrical and CN II-XII grossly intact with no noted focal neuro deficits Psych: Alert and oriented to person, place, time, and situation. Appropriate and pleasant affect. A total of 45 minutes of time were spent preparing this complex discharge summary. Patient Condition at Discharge: Stable Plan - Discharge Summary Discharge Rx Participant: No New Discharge Prescriptions: New Zinc Sulfate [Orazinc] 220 mg PO DAILY 30 Days #30 cap Cholecalciferol [Vitamin D3 (10 Mcg = 400 Iu)] 10 mcg PO DAILY 30 Days #30 tablet Dexamethasone [Decadron] 6 mg PO DAILY 5 Days #5 tablet Ascorbic Acid [Vitamin C] 1,000 mg PO DAILY 30 Days #60 tab Discharge Medication List Ascorbic Acid [Vitamin C] 1,000 mg PO DAILY 30 Days #60 tab 02/19/21 [Rx] Cholecalciferol [Vitamin D3 (10 Mcg = 400 Iu)] 10 mcg PO DAILY 30 Days #30 tablet 02/19/21 [Rx] Dexamethasone [Decadron] 6 mg PO DAILY 5 Days #5 tablet 02/19/21 [Rx] Zinc Sulfate [Orazinc] 220 mg PO DAILY 30 Days #30 cap 02/19/21 [Rx] Follow up Appointment(s)/Referral(s): Eliezer Barton MD [STAFF PHYSICIAN] - 03/19/21 10:00 am Irving Rodriguez MD [REFERRING] - 03/04/21 1:20 pm (Please arrive 15 minutes early to fill out paperwork. Bring Insurance cards and Picture ID. Also Bring Discharge packet from the hospital.) Patient Instructions/Handouts: Seizure/Epilepsy Discharge Instructions & Follow-Up, Coronavirus Disease 2019 (COVID-19) Activity/Diet/Wound Care/Special Instructions: Activity: As tolerated. Take breaks as needed. Diet: Heart healthy and carb consistent diet. Avoid salts, or foods with hidden salts such as canned or boxed foods and frozen dinners. Extra salt makes your heart work harder and traps the fluid in your body for longer. Special Instructions: Take all of your medications as directed and remember to keep all of your doctor's appointments and follow-up as needed. Thank you for allowing us to participate in your care, it was truly a pleasure having you for our patient!!! Maintain Isolation as we discussed 14 days from positive test and in addition you must be symptom free for 2 days. Discharge Disposition: HOME SELF-CARE
== END 2021-02-19 11:47 | disposition home or self-care (01) | DRG 177 ==
LOC: EC 10:49 → 4SSUR 12:23
PROVIDERS: ADMIT Internal Medicine; ATTEND Internal Medicine
PROC: XW033G6 Introduction of REGN-COV2 Monoclonal Antibody into Peripheral Vein, Percutaneous Approach, New Technology Group 6 (ICD-10-PCS; principal; 2021-02-14)
PROC: 3E0333Z Introduction of Anti-inflammatory into Peripheral Vein, Percutaneous Approach (ICD-10-PCS; 2021-02-14)
PROC: XW033E5 Introduction of Remdesivir Anti-infective into Peripheral Vein, Percutaneous Approach, New Technology Group 5 (ICD-10-PCS; 2021-02-14)
PROC: 5A0945A Assistance with Respiratory Ventilation, 24-96 Consecutive Hours, High Flow/Velocity Cannula (ICD-10-PCS; 2021-02-15)
DX: U07.1 COVID-19 (principal); J12.82 Pneumonia due to coronavirus disease 2019; J96.01 Acute respiratory failure with hypoxia; G40.909 Epilepsy, unspecified, not intractable, without status epilepticus; G43.909 Migraine, unspecified, not intractable, without status migrainosus; I10 Essential (primary) hypertension; M19.90 Unspecified osteoarthritis, unspecified site; Z80.0 Family history of malignant neoplasm of digestive organs; Z80.42 Family history of malignant neoplasm of prostate; Z82.49 Family history of ischemic heart disease and other diseases of the circulatory system; Z87.01 Personal history of pneumonia (recurrent); Z87.891 Personal history of nicotine dependence
CPT/HCPCS: 36415; 71045; 80053; 83615; 85025; 85379; 85610; 85652; 85730; 86140; 96372; 96375; 99285